=== PATIENT | male | born 1935 | race Caucasian/White ===

== ENCOUNTER 2020-05-04 02:29 | Emergency (ER) | payer MEDICARE ==
[2020-05-04] MEDS ORDERED: Sodium Chloride 0.9% 1,000 ML ONE (03:29)
[2020-05-04 03:32] LABS: ALT (SGPT) Less than 7 U/L (8-55); AST (SGOT) 8 U/L (5-34); Albumin 3.2 g/dL (3.4-4.8); Alkaline Phosphatase 81 U/L (40-110); Anion Gap 16 mmol/L (10-20); BUN (Urea Nitrogen) 19 mg/dL (8.4-25.7); Bilirubin, Total 0.3 mg/dL (0.2-1.2); Calc. Creatinine Clearance 0 mL/min (70-130); Calcium 9.2 mg/dL (7.8-10.44); Carbon Dioxide 33 mmol/L (23-31); Chloride 97 mmol/L (98-107); Estimated GFR-MDRD 43; Globulin 1.5 g/dL (2.4-3.5); Glucose 147 mg/dL (83-110); Lipase 15 U/L (8-78); Protein, Total 4.7 g/dL (5.8-8.1); Sodium 143 mmol/L (136-145)
[2020-05-04 03:34] LABS: Hemoglobin 7.6 g/dL (14.0-18.0); Red Blood Cell (RBC) Count 3.28 mill/uL (4.70-6.10); White Blood Cell (WBC) Count 2.4 thou/uL (4.8-10.8)
[2020-05-04 03:35] LABS: Mean Corpuscular HGB CONC 29.8 g/dL (32.0-36.0); Mean Corpuscular Hemoglobin 23.1 pg (27.0-31.0); Mean Corpuscular Volume 77.5 fL (78.0-98.0)
[2020-05-04 03:36] LABS: Mean Platelet Volume 7.4 fL (7.4-10.4)
[2020-05-04 03:45] LABS: Platelet Count 113 thou/uL (130-400)
[2020-05-04 06:09] LABS: #Lymphocytes 0.9 thou/uL (1.20-3.40); #Monocytes 0.2 thou/uL (0.11-0.59); #Neutrophils 1.2 thou/uL (1.40-6.50); %Basophils 1.3 % (0.0-1.0); %Lymphocytes 38.9 % (21.0-51.0); %Monocytes 6.3 % (0.0-10.0); %Neutrophils 51.5 % (42.0-75.0)
[2020-05-04 06:12] LABS: CKMB 0.7 ng/mL (0-6.6)
[2020-05-04 06:18] LABS: Potassium 2.9 mmol/L (3.5-5.1)
[2020-05-04 06:20] LABS: Hypochromia MARKED = >30 cells (100X) (0-5/hpf)
[2020-05-04 06:21] LABS: Platelet Morphology Comment Appears Decreased
--- NOTE | 2020-05-04 08:06 | CT ---
PRELIMINARY REPORT/[facility]/EMERGENCY AFTER HOURS PROCEDURE: Receipt of this report by the clinical staff was confirmed with Carol Welch rn by Neeru Lacy on May 04, 2020 04:42:00 CAKE PUNCHER. Addendum electronically signed by Neeru Lacy on May 04, 2020 4:43:46 AM CAKE PUNCHER EXAM: CTA Chest with Intravenous Contrast CTA Abdomen and Pelvis with Intravenous Contrast. CLINICAL HISTORY: CHEST AND ABD PAIN X2 HOURS TECHNIQUE: Axial CTA images of the chest, abdomen and pelvis with intravenous contrast. Three-dimensional MIP/vo lume rendered reformations were performed. CONTRAST: With; ISOVUE 370 100 ML COMPARISON: None provided. FINDINGS: Thoracic and abdominal aorta showing some modest atherosclerotic change without aneurysm or dissectio n. Moderate-sized pleural effusions are noted a little larger on the left with some minimal compressive changes at the lung bases. Cardiomegaly with a small pericardial effusion. Massive splenomegaly with what appears to be a spontaneous splenic rupture and massive hemoperitoneum . Spleen measures probably 30 cm in the craniocaudad dimension. IMPRESSION: Massive splenomegaly with spontaneous rupture with active hemorrhage with hemoperitoneum. No acute a ortic abnormalities. Bilateral pleural effusions, cardiomegaly, and pericardial effusion. ELECTRONICALLY SIGNED BY: Jameson Lugo MD May 04, 2020 4:39:49 AM CAKE PUNCHER This report is intended for review by the ordering physician only, in accordance of law. If you recei ve this report in error, please call [facility] at [phone]. FINAL REPORT EMERGENCY AFTER HOURS CTA OF THE CHEST AND ABDOMEN: FINDINGS/IMPRESSION: I agree with the findings and impression given in the preliminary report per [facility] physici an. 1. There is massive splenomegaly with splenic rupture and active bleeding. Large amount of hemoperit oneum is seen. 2. No evidence of aortic dissection or aneurysmal dilatation. 3. Bilateral pleural effusions with adjacent atelectasis. POS: [facility]
[2020-05-04] MEDS ORDERED: Iopamidol 370 76% 125 ML VIAL FS ONE (10:51)
== END 2020-05-04 05:30 | disposition short-term general hospital (02) ==
LOC: MADERS 02:29
DX: D73.5 Infarction of spleen (principal); I48.20 Chronic atrial fibrillation, unspecified; C91.10 Chronic lymphocytic leukemia of B-cell type not having achieved remission; R16.1 Splenomegaly, not elsewhere classified; E03.9 Hypothyroidism, unspecified; E78.5 Hyperlipidemia, unspecified; E78.00 Pure hypercholesterolemia, unspecified; F03.90 Unspecified dementia, unspecified severity, without behavioral disturbance, psychotic disturbance, mood disturbance, and anxiety; I10 Essential (primary) hypertension; Z79.899 Other long term (current) drug therapy; Z79.01 Long term (current) use of anticoagulants
CPT/HCPCS: 36430; 71275; 74174; 80053; 82553; 83605; 83690; 84484; 85025; 93005; J7050; Q9967

== ENCOUNTER 2020-05-18 16:08 | Inpatient (IN) | payer MEDICARE ==
[2020-05-18] MEDS: Cyanocobalamin (Vitamin B-12) 1,000 MCG TAB PO SCH (21:30)
[2020-05-18] MEDS: Carvedilol 6.25 MG TAB PO SCH (21:30)
[2020-05-18] MEDS: Apixaban 5 MG TAB PO SCH (21:30)
[2020-05-18] MEDS: hydrALAZINE 25 MG TAB PO SCH (21:31)
[2020-05-18] MEDS: Mupirocin 2% Ointment 22 GM Tube TOP SCH (21:31)
[2020-05-18] MEDS: Vit A,C & E/Lutein/Minerals Tablet PO SCH (21:31)
[2020-05-18] MEDS: Acetaminophen 500 MG TAB PO PRN (22:59)
[2020-05-19] MEDS: Levothyroxine Sodium 50 MCG TAB PO SCH (06:10)
[2020-05-19 09:00] LABS: Digoxin 0.63 ng/mL (0.8-2.0)
[2020-05-19] MEDS ORDERED: Digoxin 0.125 MG TAB PO SCH (09:00)
[2020-05-19] MEDS: hydrALAZINE 25 MG TAB PO SCH ×3 (09:01→22:02)
[2020-05-19] MEDS: Apixaban 5 MG TAB PO SCH ×2 (09:01→22:02)
[2020-05-19] MEDS: Furosemide 40 MG TAB PO SCH (09:01)
[2020-05-19] MEDS: Vit A,C & E/Lutein/Minerals Tablet PO SCH ×2 (09:01→22:02)
[2020-05-19] MEDS: Carvedilol 6.25 MG TAB PO SCH ×2 (09:01→22:02)
[2020-05-19] MEDS: Mupirocin 2% Ointment 22 GM Tube TOP SCH ×3 (09:02→22:19)
[2020-05-19] MEDS: Emollient 15 oz bottle 450 ML, Triamcinolone Acetonide 200 MG TOP SCH ×2 (09:02→22:18)
[2020-05-19 09:03] LABS: ALT (SGPT) 16 U/L (8-55); AST (SGOT) 16 U/L (5-34); Albumin 3.1 g/dL (3.4-4.8); Alkaline Phosphatase 235 U/L (40-110); Anion Gap 19 mmol/L (10-20); BUN (Urea Nitrogen) 18 mg/dL (8.4-25.7); Bilirubin, Total 0.5 mg/dL (0.2-1.2); Calc. Creatinine Clearance 79 mL/min (70-130); Calcium 8.3 mg/dL (7.8-10.44); Carbon Dioxide 26 mmol/L (23-31); Chloride 102 mmol/L (98-107); Globulin 1.5 g/dL (2.4-3.5); Glucose 77 mg/dL (83-110); Potassium 4.1 mmol/L (3.5-5.1); Protein, Total 4.6 g/dL (5.8-8.1); Sodium 143 mmol/L (136-145)
[2020-05-19 09:10] LABS: #Basophils 0.1 thou/uL (0.0-0.2); #Eosinphils 0.2 thou/uL (0.0-0.7); #Monocytes 0.9 thou/uL (0.11-0.59); #Neutrophils 10.1 thou/uL (1.40-6.50); %Basophils 1.1 % (0.0-1.0); %Eosinophils 1.7 % (0.0-10.0); %Lymphocytes 7.9 % (21.0-51.0); %Monocytes 7.3 % (0.0-10.0); %Neutrophils 82.1 % (42.0-75.0); Anisocytosis MODERATE=16-30 cells (100X) (0-5/hpf); Giant Platelets MODERATE; Hemoglobin 9.6 g/dL (14.0-18.0); Hypochromia SLIGHT = 6-15 cells (100X) (0-5/hpf); Large Platelets MODERATE; MDiff Complete? YES; Mean Corpuscular HGB CONC 30.8 g/dL (32.0-36.0); Mean Corpuscular Hemoglobin 25.6 pg (27.0-31.0); Mean Corpuscular Volume 83.2 fL (78.0-98.0); Mean Platelet Volume 12.8 fL (7.4-10.4); Platelet Count 478 thou/uL (130-400); Platelet Morphology Comment Appears Increased; Polychromasia MODERATE = 3-4 cells (100X) (0-2/hpf); RBC Distribution Width 19.4 % (11.5-14.5); Red Blood Cell (RBC) Count 3.76 mill/uL (4.70-6.10); White Blood Cell (WBC) Count 12.3 thou/uL (4.8-10.8)
[2020-05-19] MEDS: Cyanocobalamin (Vitamin B-12) 1,000 MCG TAB PO SCH (22:02)
[2020-05-20] MEDS: Levothyroxine Sodium 50 MCG TAB PO SCH (06:21)
--- NOTE | 2020-05-20 06:54 | HP ---
ATTENDING: Dr. Howell. PCP: Dr. Eloy Nichols. DOWNSTREAM BIOMANUFACTURING TECHNICIAN: Dr. Sy. GENERAL SURGEON: . REASON FOR ADMISSION: Skilled rehab in [facility] secondary to severe debility after recent hospitalization. HISTORY OF PRESENT ILLNESS: Mr. Roberts is an 84-year-old male with significant history of CLL, atrial fibrillation, CHF, and worsening dementia. The patient had a history of CLL that has been treated by an oncologist in the [place] since 2014. Per report, when he was first diagnosed with this, he was not noted to have a massive splenomegaly. After the initial round of treatment, he was suspected to be in remission for his disease and was initially told that the spleen had shrunk in size. He was found to have recurrence of the disease about six months ago per report. He began treatment at that time with Imbruvica. In February, was found to be in atrial fibrillation and had progressive cardiac problems. At that time, his Imbruvica was discontinued and the patient was treated for atrial fibrillation. The patient required an inpatient management of atrial fibrillation at that time and had a cardioversion done, but was unsuccessful within 24 hours and subsequently been rate controlled thereafter with anticoagulation. About a week ago, the patient fell at home resulting in bruising several areas. At that time, he did not require any medical evaluation, but in the middle of the night, he reported chest pain and had some shortness of breath, thus he was sent to [facility] for initial evaluation. At the ER, CT scan at that time revealed cardiomegaly, pleural effusion, massive splenomegaly that appears to have what appeared to be splenic rupture and hemoperitoneum/ascites. His hemoglobin at that time was down to 7.6 with last known hemoglobin of 2 months prior to be at 9.8. He also had leukopenia with white cell count of 2.4, platelets slightly low at 113. Potassium level of 2.9 and creatinine of 1.56. The patient was subsequently transferred to [facility] in [place]. The patient underwent splenectomy on 05/04/2020. Per report, there was difficulty weaning off the patient from the ventilator postoperatively, but eventually has been weaned off. He was continued on some IV antibiotics and cultures were collected. His cultures were negative. During his course, manufacturing engineering technician had seen the patient due to worsening renal function and they helped optimize the fluid. His renal functions improved and apparently back to baseline prior to discharge. Per , the patient was placed on enteral feeding, but that was eventually discontinued and prior to discharge, the patient was started on pureed diet, which he tolerated well. reports that the patient has not really had eaten much as of yet and remains to have inadequate oral intake, but trying. The patient continues to have significant need for aggressive physical therapy in addition to occupational therapy, so he was sent to [facility] after the patient was stabilized clinically. On admission, the patient was generally weak and frail looking. He is awake, alert, and oriented to basic information. He answers simple questions with appropriateness. was present at the time of examination. contributes some to his history. reports that the patient has a history of worsening dementia. During his recent stay in the hospital, reported that the patient had some sundowning behaviors requiring her to be with the patient at night. is willing to stay with the patient in [facility] every night. The patient reports that he feels very weak ans could hardly move in bed without significant help,has not had started walking yet, but is willing to undergo therapy in [facility]. PAST MEDICAL HISTORY: 1. CLL. 2. Atrial fibrillation. 3. Congestive heart failure. 4. 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 5. Hypertension. 6. Anemia, severe. 7. 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 8. Hypothyroidism. PAST SURGICAL HISTORY: 1. Left knee replacement. 2. He also had pilonidal cyst surgery in the remote past. 3. 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 ALLERGIES: TO PENICILLIN AND BACTRIM. SOCIAL HISTORY: The patient is . He and his live in [place]. He has not smoked in over 50 years and drinks alcohol very rarely. MEDICATIONS: 1. Eliquis. 2. Lisinopril. 3. Levothyroxine. 4. Lasix. 5. Diltiazem. 6. Carvedilol. REVIEW OF SYSTEMS: GENERAL: Denies fever or chills. Reports fatigue, general weakness, and loss of appetite. HEENT: Denies acute visual changes, hearing changes, cold symptoms. RESPIRATORY: No cough. No pain with breathing. No shortness of breath. CARDIOVASCULAR: No chest pain. No paroxysmal nocturnal dyspnea or palpitations. GI: No nausea, vomiting, abdominal pain at this time, rectal bleeding, diarrhea. or melena. GENITOURINARY: Denies gross hematuria or dysuria. Positive for Carolina catheter. MUSCULOSKELETAL: Denies joint pains or myalgia. NEURO: Denies focal paralysis, paresthesia, headaches, seizures. PSYCH: Reports poor memory and then sundowning behaviors. PHYSICAL EXAMINATION: VITAL SIGNS: Blood pressure 158/86, temperature 98.6, pulse 76, respirations 18, O2 saturation 96% on room air. Weight at 137 pounds, height 5 feet 9 inches. GENERAL: The patient is awake, alert, oriented to person and place. Comfortable on exam, frail, cachectic, generally weak-looking elderly male, in no signs of acute respiratory distress. HEENT: Normocephalic, atraumatic. PERRL. Intact EOM. Anicteric sclerae. Oral mucosa is moist. The lips are dry and covered with dark dry scab. NECK: Supple. No LAD. No JVD. No bruit. CHEST: Normal excursion. Nonlabored breathing. LUNGS: Clear to auscultation bilaterally. No rales. No crackles. No rhonchi. No wheezing. CARDIAC: Rate controlled. Normal S1 and S2. ABDOMEN: Vertical postoperative site on mid abdomen is dry, edges are well coaptated. No erythema. No drainage. No signs of infection, with normoactive bowel sounds. Flat, nontender. No rebound or guarding. Negative CVA tenderness bilaterally. EXTREMITIES: Thin,atrophied limbs, No edema. No cyanosis. SKIN: Very dry hyperpigmented scaling of skin from the neck down to the arms and legs. with unstageable sacral decubitus ulcer, covered with yellowish slough. See pictures for details. NEUROLOGIC: Nonfocal. Moves all extremities symmetrically. Gait, bed-bound. PSYCH: Normal affect and socially interactive, calm, and cooperative. LABS: The most recent lab on 05/16/2020: WBC 12.5, hemoglobin 8.8, hematocrit 29.2, platelet 382. Sodium 139, potassium 4.2, BUN 16, creatinine 0.59, estimated GFR greater than 90, calcium 8.4, phosphorus 2.7, albumin 3.0. Previous albumin 1.5 on 05/13/2020. Digoxin level 05/07/2020, 0.98. COVID testing on 05/04/2020 was negative. ASSESSMENT AND PLAN: This is an 84-year-old male with significant history of CLL, atrial fibrillation, CHF, who recently had a spontaneous rupture of the spleen and deemed like related to his massive splenomegaly, uncertain if it is acute or chronic, uncertain if traumatic or spontaneous rupture. The patient underwent splenectomy on 05/04/2020 for splenic rupture with large hemoperitoneum and acute blood loss anemia, now with severe debility, loss of appetite, poor oral intake with swallowing issues. Malnutrition is associated with hypoalbuminemia; multiple skin lesions, unstageable sacral decubitus ulcer. He is completely bedbound, and requiring indwelling urinary catheter for preventative measures to avoid worsening of sacral wound. The patient is admitted at [facility] for purposes of skilled rehab. The patient will be referred to PT, OT, and speech therapy for evaluation and management. He will continue all current medications as per transfer list. The will continue pureed diet as directed. We will order baseline lab works at this time and may probably need serial blood works along the course. We will retain his Carolina catheter until the patient becomes mobile. Routine wound care. Aspiration precautions. Turn from side to side every 2 hours. We will continue monitoring the patient for signs of infection. We will schedule followup appointments with the surgeon and the patient's Hematology as part of the discharge plan. Further recommendations depending on the hospital course. CODE STATUS: DNAR as confirmed by . ESTIMATED LENGTH OF STAY: 2 to 3 weeks. DISPOSITION: Home with once appropriate. Job ID: [id number] [facility]
[2020-05-20] MEDS ORDERED: Mupirocin 2% Ointment 22 GM Tube ONE ×2 (08:32→09:17)
[2020-05-20] MEDS: hydrALAZINE 25 MG TAB PO SCH ×3 (09:02→21:11)
[2020-05-20] MEDS: Vit A,C & E/Lutein/Minerals Tablet PO SCH ×2 (09:02→21:10)
[2020-05-20] MEDS: Carvedilol 6.25 MG TAB PO SCH ×2 (09:02→21:10)
[2020-05-20] MEDS: Ibuprofen 600 MG TAB PO PRN (09:03)
[2020-05-20] MEDS: Digoxin 0.25 MG TAB PO SCH (09:03)
[2020-05-20] MEDS: Furosemide 40 MG TAB PO SCH (09:03)
[2020-05-20] MEDS: Apixaban 5 MG TAB PO SCH ×2 (09:03→21:10)
[2020-05-20] MEDS: Nystatin 500,000 UNITS/5 ML UDCUP SSW SCH ×4 (09:04→21:10)
[2020-05-20] MEDS: Emollient 15 oz bottle 450 ML, Triamcinolone Acetonide 200 MG TOP SCH ×2 (09:04→21:12)
[2020-05-20] MEDS: Mupirocin 2% Ointment 22 GM Tube TOP SCH ×3 (09:12→21:09)
[2020-05-20] MEDS: Lidocaine Viscous Sol 2% 15 ml UD Cup SSP SCH (09:16)
[2020-05-20 18:20] LABS: ALT (SGPT) 12 U/L (8-55); AST (SGOT) 14 U/L (5-34); Albumin 3.3 g/dL (3.4-4.8); Alkaline Phosphatase 243 U/L (40-110); Anion Gap 16 mmol/L (10-20); BUN (Urea Nitrogen) 17 mg/dL (8.4-25.7); Bilirubin, Total 0.4 mg/dL (0.2-1.2); Calc. Creatinine Clearance 69 mL/min (70-130); Calcium 8.9 mg/dL (7.8-10.44); Carbon Dioxide 32 mmol/L (23-31); Chloride 101 mmol/L (98-107); Globulin 1.9 g/dL (2.4-3.5); Glucose 112 mg/dL (83-110); Potassium 3.6 mmol/L (3.5-5.1); Protein, Total 5.2 g/dL (5.8-8.1); Sodium 145 mmol/L (136-145)
[2020-05-20 18:34] LABS: Hemoglobin 10.7 g/dL (14.0-18.0); Mean Corpuscular HGB CONC 31.4 g/dL (32.0-36.0); Mean Corpuscular Hemoglobin 25.9 pg (27.0-31.0); Mean Corpuscular Volume 82.5 fL (78.0-98.0); Mean Platelet Volume 12.9 fL (7.4-10.4); Platelet Count 552 thou/uL (130-400); RBC Distribution Width 18.9 % (11.5-14.5); Red Blood Cell (RBC) Count 4.14 mill/uL (4.70-6.10); White Blood Cell (WBC) Count 17.3 thou/uL (4.8-10.8)
[2020-05-20 18:35] LABS: Anisocytosis MODERATE=16-30 cells (100X) (0-5/hpf); Hypochromia SLIGHT = 6-15 cells (100X) (0-5/hpf); MDiff Complete? YES; Polychromasia SLIGHT = 2-3 cells (100X) (0-2/hpf)
[2020-05-20 18:41] LABS: Lymphocytes 4 % (21-51); Neutrophil 91 % (42-75)
[2020-05-20 18:42] LABS: Monocytes 5 % (0-10)
[2020-05-20] MEDS: Cyanocobalamin (Vitamin B-12) 1,000 MCG TAB PO SCH (21:10)
[2020-05-20] MEDS: Acetaminophen 500 MG TAB PO PRN (21:35)
[2020-05-21] MEDS: Levothyroxine Sodium 50 MCG TAB PO SCH (05:47)
[2020-05-21] MEDS: Lidocaine Viscous Sol 2% 15 ml UD Cup SSP SCH (09:52)
[2020-05-21] MEDS: Nystatin 500,000 UNITS/5 ML UDCUP SSW SCH ×4 (09:53→20:21)
[2020-05-21] MEDS: Furosemide 40 MG TAB PO SCH (09:55)
[2020-05-21] MEDS: Ibuprofen 600 MG TAB PO PRN (09:55)
[2020-05-21] MEDS: Digoxin 0.25 MG TAB PO SCH (09:55)
[2020-05-21] MEDS: Apixaban 5 MG TAB PO SCH (09:55)
[2020-05-21] MEDS: Vit A,C & E/Lutein/Minerals Tablet PO SCH ×2 (09:56→20:21)
[2020-05-21] MEDS: hydrALAZINE 25 MG TAB PO SCH ×3 (09:56→20:21)
[2020-05-21] MEDS: Mupirocin 2% Ointment 22 GM Tube TOP SCH ×3 (09:57→20:29)
[2020-05-21] MEDS: Carvedilol 6.25 MG TAB PO SCH ×2 (09:57→20:17)
[2020-05-21] MEDS: Emollient 15 oz bottle 450 ML, Triamcinolone Acetonide 200 MG TOP SCH ×2 (09:57→21:00)
[2020-05-21] MEDS: Acetaminophen 500 MG TAB PO SCH ×2 (15:06→20:12)
[2020-05-21] MEDS: Lisinopril 10 MG TAB PO SCH ×5 (15:09→15:21)
[2020-05-21] MEDS: Silver Sulfadiazine 50 GM TUBE TOP SCH ×3 (15:10→15:20)
[2020-05-21] MEDS: LISINOPRIL 2.5 MG PO SCH ×3 (15:10→15:20)
[2020-05-21] MEDS: Mirtazapine 15 MG TAB PO SCH (20:14)
[2020-05-21] MEDS: Cyanocobalamin (Vitamin B-12) 1,000 MCG TAB PO SCH (20:15)
[2020-05-21] MEDS: Apixaban 2.5 MG TAB PO SCH (20:17)
[2020-05-22] MEDS: Levothyroxine Sodium 50 MCG TAB PO SCH (05:30)
[2020-05-22] MEDS: Carvedilol 6.25 MG TAB PO SCH ×2 (09:06→21:22)
[2020-05-22] MEDS: hydrALAZINE 25 MG TAB PO SCH ×3 (09:06→21:22)
[2020-05-22] MEDS: Lidocaine Viscous Sol 2% 15 ml UD Cup SSP SCH (09:06)
[2020-05-22] MEDS: Nystatin 500,000 UNITS/5 ML UDCUP SSW SCH ×4 (09:06→21:24)
[2020-05-22] MEDS: Acetaminophen 500 MG TAB PO SCH ×3 (09:07→21:23)
[2020-05-22] MEDS: Lisinopril 5 MG TAB PO SCH (09:07)
[2020-05-22] MEDS: Apixaban 2.5 MG TAB PO SCH ×2 (09:07→21:22)
[2020-05-22] MEDS: Digoxin 0.25 MG TAB PO SCH (09:07)
[2020-05-22] MEDS: Furosemide 40 MG TAB PO SCH (09:07)
[2020-05-22] MEDS: Mupirocin 2% Ointment 22 GM Tube TOP SCH ×3 (09:08→21:24)
[2020-05-22] MEDS: Vit A,C & E/Lutein/Minerals Tablet PO SCH ×2 (09:08→21:21)
[2020-05-22] MEDS: Emollient 15 oz bottle 450 ML, Triamcinolone Acetonide 200 MG TOP SCH ×2 (09:09→21:24)
[2020-05-22] MEDS: Mirtazapine 15 MG TAB PO SCH (21:20)
[2020-05-22] MEDS: Cyanocobalamin (Vitamin B-12) 1,000 MCG TAB PO SCH (21:21)
[2020-05-23] MEDS: Levothyroxine Sodium 50 MCG TAB PO SCH (05:45)
[2020-05-23] MEDS: Lidocaine Viscous Sol 2% 15 ml UD Cup SSP SCH (09:45)
[2020-05-23] MEDS: Nystatin 500,000 UNITS/5 ML UDCUP SSW SCH ×4 (09:46→22:59)
[2020-05-23] MEDS: hydrALAZINE 25 MG TAB PO SCH ×4 (09:47→23:49)
[2020-05-23] MEDS: Furosemide 40 MG TAB PO SCH (09:47)
[2020-05-23] MEDS: Digoxin 0.25 MG TAB PO SCH (09:47)
[2020-05-23] MEDS: Acetaminophen 500 MG TAB PO SCH ×3 (09:48→21:52)
[2020-05-23] MEDS: Lisinopril 5 MG TAB PO SCH (09:49)
[2020-05-23] MEDS: Carvedilol 6.25 MG TAB PO SCH ×2 (09:49→21:53)
[2020-05-23] MEDS: Apixaban 2.5 MG TAB PO SCH ×2 (09:50→21:52)
[2020-05-23] MEDS: Emollient 15 oz bottle 450 ML, Triamcinolone Acetonide 200 MG TOP SCH ×2 (09:51→21:57)
[2020-05-23] MEDS: Mupirocin 2% Ointment 22 GM Tube TOP SCH ×3 (09:51→22:58)
[2020-05-23] MEDS: Vit A,C & E/Lutein/Minerals Tablet PO SCH ×2 (09:53→22:26)
[2020-05-23] MEDS: Cyanocobalamin (Vitamin B-12) 1,000 MCG TAB PO SCH (21:52)
[2020-05-23] MEDS: Mirtazapine 15 MG TAB PO SCH (21:54)
[2020-05-23] MEDS ORDERED: Clindamycin 150 MG CAP ONE (21:59)
[2020-05-23] MEDS ORDERED: Clindamycin 150 MG CAP PO SCH (22:30)
[2020-05-24] MEDS: Levothyroxine Sodium 50 MCG TAB PO SCH (05:44)
[2020-05-24] MEDS: Clindamycin 150 MG CAP PO SCH ×3 (05:44→21:30)
[2020-05-24] MEDS: Vit A,C & E/Lutein/Minerals Tablet PO SCH ×2 (08:49→20:25)
[2020-05-24] MEDS: Lisinopril 5 MG TAB PO SCH (08:49)
[2020-05-24] MEDS: Acetaminophen 500 MG TAB PO SCH ×3 (08:50→20:24)
[2020-05-24] MEDS: Digoxin 0.25 MG TAB PO SCH (08:50)
[2020-05-24] MEDS: Furosemide 40 MG TAB PO SCH (08:50)
[2020-05-24] MEDS: Carvedilol 6.25 MG TAB PO SCH ×2 (08:51→20:27)
[2020-05-24] MEDS: Apixaban 2.5 MG TAB PO SCH ×2 (08:51→20:27)
[2020-05-24] MEDS: hydrALAZINE 25 MG TAB PO SCH ×3 (08:51→20:34)
[2020-05-24] MEDS: Lidocaine Viscous Sol 2% 15 ml UD Cup SSP SCH (08:52)
[2020-05-24] MEDS: Nystatin 500,000 UNITS/5 ML UDCUP SSW SCH ×4 (08:53→20:27)
[2020-05-24] MEDS: Mupirocin 2% Ointment 22 GM Tube TOP SCH ×3 (08:53→20:28)
[2020-05-24] MEDS: Emollient 15 oz bottle 450 ML, Triamcinolone Acetonide 200 MG TOP SCH ×2 (08:53→20:28)
[2020-05-24] MEDS: Saccharomyces boulardii 250 MG CAP PO SCH (08:53)
[2020-05-24] MEDS: Mirtazapine 15 MG TAB PO SCH (20:26)
[2020-05-24] MEDS: Cyanocobalamin (Vitamin B-12) 1,000 MCG TAB PO SCH (20:27)
[2020-05-25] MEDS: Levothyroxine Sodium 50 MCG TAB PO SCH (05:27)
[2020-05-25] MEDS: Clindamycin 150 MG CAP PO SCH ×3 (05:27→22:49)
[2020-05-25 06:54] LABS: Hemoglobin 9.2 g/dL (14.0-18.0); Platelet Count 557 thou/uL (130-400)
[2020-05-25] MEDS: Acetaminophen 500 MG TAB PO SCH ×3 (08:47→19:59)
[2020-05-25] MEDS: Saccharomyces boulardii 250 MG CAP PO SCH (08:47)
[2020-05-25] MEDS: Carvedilol 6.25 MG TAB PO SCH ×2 (08:47→20:02)
[2020-05-25] MEDS: Lisinopril 5 MG TAB PO SCH (08:47)
[2020-05-25] MEDS: Vit A,C & E/Lutein/Minerals Tablet PO SCH ×2 (08:47→20:00)
[2020-05-25] MEDS: Apixaban 2.5 MG TAB PO SCH ×2 (08:47→19:59)
[2020-05-25] MEDS: hydrALAZINE 25 MG TAB PO SCH ×3 (08:48→20:08)
[2020-05-25] MEDS: Furosemide 40 MG TAB PO SCH (08:48)
[2020-05-25] MEDS: Lidocaine Viscous Sol 2% 15 ml UD Cup SSP SCH (08:48)
[2020-05-25] MEDS: Digoxin 0.25 MG TAB PO SCH (08:48)
[2020-05-25] MEDS: Nystatin 500,000 UNITS/5 ML UDCUP SSW SCH ×4 (08:48→20:00)
[2020-05-25] MEDS: Mupirocin 2% Ointment 22 GM Tube TOP SCH ×3 (08:49→20:00)
[2020-05-25] MEDS: Emollient 15 oz bottle 450 ML, Triamcinolone Acetonide 200 MG TOP SCH ×2 (08:49→20:09)
[2020-05-25 12:51] LABS: White Blood Cell (WBC) Count 12.6 thou/uL (4.8-10.8)
[2020-05-25] MEDS: Cyanocobalamin (Vitamin B-12) 1,000 MCG TAB PO SCH (19:59)
[2020-05-25] MEDS: Mirtazapine 15 MG TAB PO SCH (19:59)
[2020-05-25] MEDS ORDERED: hydrALAZINE 25 MG TAB PO SCH (20:15)
[2020-05-26] MEDS: Levothyroxine Sodium 50 MCG TAB PO SCH (05:32)
[2020-05-26] MEDS: Clindamycin 150 MG CAP PO SCH (05:32)
[2020-05-26] MEDS: Acetaminophen 500 MG TAB PO SCH ×3 (08:07→20:09)
[2020-05-26] MEDS: Carvedilol 6.25 MG TAB PO SCH ×2 (08:08→20:11)
[2020-05-26] MEDS: Apixaban 2.5 MG TAB PO SCH ×2 (08:08→20:10)
[2020-05-26] MEDS: Digoxin 0.25 MG TAB PO SCH (08:09)
[2020-05-26] MEDS: Saccharomyces boulardii 250 MG CAP PO SCH (08:10)
[2020-05-26] MEDS: Furosemide 40 MG TAB PO SCH (08:10)
[2020-05-26] MEDS: Lisinopril 5 MG TAB PO SCH (08:10)
[2020-05-26] MEDS: Vit A,C & E/Lutein/Minerals Tablet PO SCH ×2 (08:10→20:07)
[2020-05-26] MEDS: hydrALAZINE 25 MG TAB PO SCH ×3 (08:10→20:08)
[2020-05-26] MEDS: Nystatin 500,000 UNITS/5 ML UDCUP SSW SCH ×4 (08:11→20:06)
[2020-05-26] MEDS: Lidocaine Viscous Sol 2% 15 ml UD Cup SSP SCH (08:13)
[2020-05-26] MEDS: Mupirocin 2% Ointment 22 GM Tube TOP SCH ×3 (08:14→20:10)
[2020-05-26] MEDS: Emollient 15 oz bottle 450 ML, Triamcinolone Acetonide 200 MG TOP SCH ×2 (08:15→20:06)
[2020-05-26] MEDS ORDERED: Linezolid 600 MG TAB PO SCH ×2 (10:45→21:00)
[2020-05-26] MEDS: Linezolid 600 MG TAB PO SCH (20:08)
[2020-05-26] MEDS: Cyanocobalamin (Vitamin B-12) 1,000 MCG TAB PO SCH (20:09)
[2020-05-26] MEDS: Mirtazapine 15 MG TAB PO SCH (20:10)
[2020-05-27] MEDS: Levothyroxine Sodium 50 MCG TAB PO SCH (05:13)
[2020-05-27] MEDS: Acetaminophen 500 MG TAB PO SCH ×3 (08:27→19:59)
[2020-05-27] MEDS: Lisinopril 5 MG TAB PO SCH (08:28)
[2020-05-27] MEDS: Carvedilol 6.25 MG TAB PO SCH ×2 (08:28→20:01)
[2020-05-27] MEDS: Furosemide 40 MG TAB PO SCH (08:28)
[2020-05-27] MEDS: Apixaban 2.5 MG TAB PO SCH ×2 (08:28→20:02)
[2020-05-27] MEDS: Digoxin 0.25 MG TAB PO SCH (08:28)
[2020-05-27] MEDS: Saccharomyces boulardii 250 MG CAP PO SCH (08:29)
[2020-05-27] MEDS: hydrALAZINE 25 MG TAB PO SCH ×3 (08:29→20:01)
[2020-05-27] MEDS: Linezolid 600 MG TAB PO SCH ×2 (08:29→20:00)
[2020-05-27] MEDS: Vit A,C & E/Lutein/Minerals Tablet PO SCH ×2 (08:30→19:59)
[2020-05-27] MEDS: Mupirocin 2% Ointment 22 GM Tube TOP SCH ×3 (08:30→20:03)
[2020-05-27] MEDS: Lidocaine Viscous Sol 2% 15 ml UD Cup SSP SCH (08:30)
[2020-05-27] MEDS: Nystatin 500,000 UNITS/5 ML UDCUP SSW SCH ×4 (08:30→20:00)
[2020-05-27] MEDS: Emollient 15 oz bottle 450 ML, Triamcinolone Acetonide 200 MG TOP SCH ×2 (08:31→20:02)
[2020-05-27] MEDS ORDERED: Proctozone-HC 30 GM TUBE PR PRN (17:52)
[2020-05-27] MEDS: Proctozone-HC 30 GM TUBE PR SCH (20:00)
[2020-05-27] MEDS: Mirtazapine 15 MG TAB PO SCH (20:00)
[2020-05-27] MEDS: Cyanocobalamin (Vitamin B-12) 1,000 MCG TAB PO SCH (20:01)
[2020-05-28] MEDS: Levothyroxine Sodium 50 MCG TAB PO SCH (05:21)
[2020-05-28 05:53] LABS: Calc. Creatinine Clearance 76 mL/min (70-130)
[2020-05-28 05:57] LABS: Digoxin 1.25 ng/mL (0.8-2.0)
[2020-05-28 06:14] LABS: Hemoglobin 10.5 g/dL (14.0-18.0); Platelet Count 678 thou/uL (130-400)
--- NOTE | 2020-05-28 07:36 | RAD ---
XR Knee Lt 2 View History: Knee pain after fall Comparison: None. Findings: Intact left total knee arthroplasty. No significant joint effusion. No acute fracture. Mild vascular calcifications. Impression: No osseous abnormality. Intact left knee arthroplasty.
[2020-05-28] MEDS: Nystatin 500,000 UNITS/5 ML UDCUP SSW SCH ×4 (08:28→20:43)
[2020-05-28] MEDS: Lisinopril 5 MG TAB PO SCH (08:29)
[2020-05-28] MEDS: Carvedilol 6.25 MG TAB PO SCH ×2 (08:29→20:40)
[2020-05-28] MEDS: Acetaminophen 500 MG TAB PO SCH ×3 (08:29→20:38)
[2020-05-28] MEDS: Apixaban 2.5 MG TAB PO SCH ×2 (08:30→20:39)
[2020-05-28] MEDS: hydrALAZINE 25 MG TAB PO SCH ×3 (08:30→20:42)
[2020-05-28] MEDS: Linezolid 600 MG TAB PO SCH ×2 (08:30→20:40)
[2020-05-28] MEDS: Digoxin 0.25 MG TAB PO SCH (08:30)
[2020-05-28] MEDS: Furosemide 40 MG TAB PO SCH (08:30)
[2020-05-28] MEDS: Mupirocin 2% Ointment 22 GM Tube TOP SCH ×3 (08:31→21:55)
[2020-05-28] MEDS: Proctozone-HC 30 GM TUBE PR SCH ×2 (08:31→20:43)
[2020-05-28] MEDS: Saccharomyces boulardii 250 MG CAP PO SCH (08:32)
[2020-05-28] MEDS: Lidocaine Viscous Sol 2% 15 ml UD Cup SSP SCH (08:32)
[2020-05-28] MEDS: Emollient 15 oz bottle 450 ML, Triamcinolone Acetonide 200 MG TOP SCH ×2 (08:32→20:44)
[2020-05-28] MEDS: Vit A,C & E/Lutein/Minerals Tablet PO SCH ×2 (08:32→20:40)
[2020-05-28] MEDS: Cyanocobalamin (Vitamin B-12) 1,000 MCG TAB PO SCH (20:40)
[2020-05-28] MEDS: Mirtazapine 15 MG TAB PO SCH (20:41)
[2020-05-29] MEDS: Levothyroxine Sodium 50 MCG TAB PO SCH (05:49)
[2020-05-29] MEDS: Lidocaine Viscous Sol 2% 15 ml UD Cup SSP SCH (08:29)
[2020-05-29] MEDS: Nystatin 500,000 UNITS/5 ML UDCUP SSW SCH ×4 (08:29→20:12)
[2020-05-29] MEDS: Acetaminophen 500 MG TAB PO SCH ×3 (08:29→20:13)
[2020-05-29] MEDS: Vit A,C & E/Lutein/Minerals Tablet PO SCH ×2 (08:30→20:12)
[2020-05-29] MEDS: Lisinopril 5 MG TAB PO SCH (08:30)
[2020-05-29] MEDS: Digoxin 0.25 MG TAB PO SCH (08:30)
[2020-05-29] MEDS: Apixaban 2.5 MG TAB PO SCH ×2 (08:30→20:14)
[2020-05-29] MEDS: hydrALAZINE 25 MG TAB PO SCH ×3 (08:30→20:14)
[2020-05-29] MEDS: Saccharomyces boulardii 250 MG CAP PO SCH (08:30)
[2020-05-29] MEDS: Furosemide 40 MG TAB PO SCH (08:31)
[2020-05-29] MEDS: Carvedilol 6.25 MG TAB PO SCH ×2 (08:31→20:14)
[2020-05-29] MEDS: Linezolid 600 MG TAB PO SCH ×2 (08:31→20:12)
[2020-05-29] MEDS: Proctozone-HC 30 GM TUBE PR SCH ×2 (08:31→20:15)
[2020-05-29] MEDS: Mupirocin 2% Ointment 22 GM Tube TOP SCH ×3 (08:31→20:12)
[2020-05-29] MEDS: Emollient 15 oz bottle 450 ML, Triamcinolone Acetonide 200 MG TOP SCH ×2 (10:53→20:15)
[2020-05-29] MEDS: Mirtazapine 15 MG TAB PO SCH (20:14)
[2020-05-29] MEDS: Cyanocobalamin (Vitamin B-12) 1,000 MCG TAB PO SCH (20:14)
[2020-05-29] MEDS: Melatonin 3 MG TAB PO PRN (21:07)
[2020-05-30] MEDS: Levothyroxine Sodium 50 MCG TAB PO SCH (05:18)
[2020-05-30] MEDS: Lidocaine Viscous Sol 2% 15 ml UD Cup SSP SCH (09:28)
[2020-05-30] MEDS: Saccharomyces boulardii 250 MG CAP PO SCH (09:30)
[2020-05-30] MEDS: Acetaminophen 500 MG TAB PO SCH ×3 (09:30→20:14)
[2020-05-30] MEDS: Carvedilol 6.25 MG TAB PO SCH ×2 (09:30→20:15)
[2020-05-30] MEDS: Nystatin 500,000 UNITS/5 ML UDCUP SSW SCH ×4 (09:30→20:13)
[2020-05-30] MEDS: Apixaban 2.5 MG TAB PO SCH ×2 (09:30→20:17)
[2020-05-30] MEDS: Vit A,C & E/Lutein/Minerals Tablet PO SCH ×2 (09:30→20:13)
[2020-05-30] MEDS: Digoxin 0.25 MG TAB PO SCH (09:31)
[2020-05-30] MEDS: Lisinopril 5 MG TAB PO SCH (09:32)
[2020-05-30] MEDS: hydrALAZINE 25 MG TAB PO SCH ×3 (09:33→20:15)
[2020-05-30] MEDS: Linezolid 600 MG TAB PO SCH ×2 (09:33→20:15)
[2020-05-30] MEDS: Mupirocin 2% Ointment 22 GM Tube TOP SCH ×3 (09:34→20:14)
[2020-05-30] MEDS: Emollient 15 oz bottle 450 ML, Triamcinolone Acetonide 200 MG TOP SCH ×2 (09:35→20:14)
[2020-05-30] MEDS: Proctozone-HC 30 GM TUBE PR SCH ×2 (09:36→20:16)
[2020-05-30] MEDS: Melatonin 3 MG TAB PO PRN (20:16)
[2020-05-30] MEDS: Mirtazapine 15 MG TAB PO SCH (20:16)
[2020-05-30] MEDS: Cyanocobalamin (Vitamin B-12) 1,000 MCG TAB PO SCH (20:16)
[2020-05-30] MEDS: Aspirin 81 mg Enteric Coated Tablet PO SCH (20:16)
[2020-05-31] MEDS: Levothyroxine Sodium 50 MCG TAB PO SCH (05:10)
[2020-05-31] MEDS: Acetaminophen 500 MG TAB PO SCH ×3 (09:37→20:44)
[2020-05-31] MEDS: Apixaban 2.5 MG TAB PO SCH ×2 (09:38→20:40)
[2020-05-31] MEDS: Linezolid 600 MG TAB PO SCH ×2 (09:38→20:45)
[2020-05-31] MEDS: Nystatin 500,000 UNITS/5 ML UDCUP SSW SCH (09:39)
[2020-05-31] MEDS: Lidocaine Viscous Sol 2% 15 ml UD Cup SSP SCH (09:39)
[2020-05-31] MEDS: hydrALAZINE 25 MG TAB PO SCH ×3 (09:39→20:44)
[2020-05-31] MEDS: Saccharomyces boulardii 250 MG CAP PO SCH (09:39)
[2020-05-31] MEDS: Carvedilol 6.25 MG TAB PO SCH ×2 (09:39→20:43)
[2020-05-31] MEDS: Digoxin 0.25 MG TAB PO SCH (09:39)
[2020-05-31] MEDS: Vit A,C & E/Lutein/Minerals Tablet PO SCH ×2 (09:39→20:39)
[2020-05-31] MEDS: Lisinopril 5 MG TAB PO SCH (09:39)
[2020-05-31] MEDS: Sodium Chloride 0.9% 1,000 ML IV SCH ×2 (09:41→20:08)
[2020-05-31] MEDS: Proctozone-HC 30 GM TUBE PR SCH ×2 (09:42→21:00)
[2020-05-31] MEDS: Emollient 15 oz bottle 450 ML, Triamcinolone Acetonide 200 MG TOP SCH ×2 (09:43→20:47)
[2020-05-31] MEDS: Mupirocin 2% Ointment 22 GM Tube TOP SCH (09:43)
[2020-05-31] MEDS ORDERED: Amino Acids 4.25 %/Dextrose 5% 1,000 ML IV SCH (12:30)
[2020-05-31] MEDS: Mirtazapine 15 MG TAB PO SCH (20:40)
[2020-05-31] MEDS: Aspirin 81 mg Enteric Coated Tablet PO SCH (20:42)
[2020-05-31] MEDS: Cyanocobalamin (Vitamin B-12) 1,000 MCG TAB PO SCH (20:45)
[2020-05-31] MEDS: Melatonin 3 MG TAB PO PRN (20:51)
[2020-06-01] MEDS: Sodium Chloride 0.9% 1,000 ML IV SCH ×2 (04:34→14:53)
[2020-06-01] MEDS: Levothyroxine Sodium 50 MCG TAB PO SCH ×2 (05:20→05:23)
[2020-06-01] MEDS: Vit A,C & E/Lutein/Minerals Tablet PO SCH ×2 (08:25→20:30)
[2020-06-01] MEDS: Saccharomyces boulardii 250 MG CAP PO SCH (08:25)
[2020-06-01] MEDS: Acetaminophen 500 MG TAB PO SCH ×3 (08:26→20:24)
[2020-06-01] MEDS: Lisinopril 5 MG TAB PO SCH (08:27)
[2020-06-01] MEDS: Digoxin 0.25 MG TAB PO SCH (08:27)
[2020-06-01] MEDS: Linezolid 600 MG TAB PO SCH ×2 (08:27→20:28)
[2020-06-01] MEDS: hydrALAZINE 25 MG TAB PO SCH ×3 (08:28→20:27)
[2020-06-01] MEDS: Carvedilol 6.25 MG TAB PO SCH ×2 (08:28→20:27)
[2020-06-01] MEDS: Apixaban 2.5 MG TAB PO SCH ×2 (08:28→20:26)
[2020-06-01] MEDS: Emollient 15 oz bottle 450 ML, Triamcinolone Acetonide 200 MG TOP SCH ×2 (08:29→20:32)
[2020-06-01] MEDS: Amino Acids 4.25 %/Dextrose 5% 2,000 ML IV SCH (09:30)
[2020-06-01] MEDS: Proctozone-HC 30 GM TUBE PR SCH ×2 (10:17→20:33)
[2020-06-01] MEDS: Aspirin 81 mg Enteric Coated Tablet PO SCH (20:27)
[2020-06-01] MEDS: Cyanocobalamin (Vitamin B-12) 1,000 MCG TAB PO SCH (20:27)
[2020-06-01] MEDS: Mirtazapine 15 MG TAB PO SCH (20:29)
[2020-06-01] MEDS: Melatonin 3 MG TAB PO PRN (20:40)
[2020-06-02] MEDS: Sodium Chloride 0.9% 1,000 ML IV SCH ×3 (00:45→21:06)
[2020-06-02] MEDS: Amino Acids 4.25 %/Dextrose 5% 2,000 ML IV SCH (05:29)
[2020-06-02] MEDS: Levothyroxine Sodium 50 MCG TAB PO SCH (05:30)
[2020-06-02] MEDS: Vit A,C & E/Lutein/Minerals Tablet PO SCH ×2 (08:43→21:10)
[2020-06-02] MEDS: Linezolid 600 MG TAB PO SCH ×2 (08:44→21:09)
[2020-06-02] MEDS: Digoxin 0.25 MG TAB PO SCH (08:44)
[2020-06-02] MEDS: hydrALAZINE 25 MG TAB PO SCH ×3 (08:44→21:08)
[2020-06-02] MEDS: Apixaban 2.5 MG TAB PO SCH ×2 (08:44→21:07)
[2020-06-02] MEDS: Acetaminophen 500 MG TAB PO SCH ×3 (08:44→21:05)
[2020-06-02] MEDS: Saccharomyces boulardii 250 MG CAP PO SCH (08:44)
[2020-06-02] MEDS: Carvedilol 6.25 MG TAB PO SCH ×2 (08:44→21:07)
[2020-06-02] MEDS: Lisinopril 5 MG TAB PO SCH (08:45)
[2020-06-02] MEDS: Proctozone-HC 30 GM TUBE PR SCH ×2 (08:46→21:11)
[2020-06-02] MEDS: Emollient 15 oz bottle 450 ML, Triamcinolone Acetonide 200 MG TOP SCH ×2 (08:46→21:11)
[2020-06-02] MEDS ORDERED: Amino Acids 4.25 %/Dextrose 5% 2,000 ML IV SCH ×2 (15:00→15:15)
[2020-06-02] MEDS ORDERED: Amino Acids 4.25 %/Dextrose 5% 1,000 ML IV SCH (15:15)
[2020-06-02] MEDS ORDERED: Zinc Oxide 20% Oint 30 GM TUBE TOP PRN (15:22)
[2020-06-02] MEDS ORDERED: Zinc Sulfate 220 MG CAP PO PRN (15:25)
[2020-06-02] MEDS: D5W-AA 4.25% with LYTES 1,000 ML IV SCH (18:06)
[2020-06-02 18:09] LABS: ALT (SGPT) 14 U/L (8-55); AST (SGOT) 20 U/L (5-34); Albumin 3.1 g/dL (3.4-4.8); Alkaline Phosphatase 259 U/L (40-110); Anion Gap 13 mmol/L (10-20); BUN (Urea Nitrogen) 36 mg/dL (8.4-25.7); Bilirubin, Total 0.2 mg/dL (0.2-1.2); Calc. Creatinine Clearance 79 mL/min (70-130); Calcium 8.1 mg/dL (7.8-10.44); Carbon Dioxide 30 mmol/L (23-31); Chloride 101 mmol/L (98-107); Globulin 1.8 g/dL (2.4-3.5); Glucose 123 mg/dL (83-110); Magnesium 2.1 mg/dL (1.6-2.6); Protein, Total 4.9 g/dL (5.8-8.1); Sodium 140 mmol/L (136-145)
[2020-06-02] MEDS: Aspirin 81 mg Enteric Coated Tablet PO SCH (21:07)
[2020-06-02] MEDS: Cyanocobalamin (Vitamin B-12) 1,000 MCG TAB PO SCH (21:08)
[2020-06-02] MEDS: Mirtazapine 15 MG TAB PO SCH (21:09)
[2020-06-03] MEDS: D5W-AA 4.25% with LYTES 1,000 ML IV SCH ×3 (03:46→23:12)
[2020-06-03] MEDS: Levothyroxine Sodium 50 MCG TAB PO SCH (06:21)
[2020-06-03] MEDS: Sodium Chloride 0.9% 1,000 ML IV SCH ×2 (06:22→16:47)
[2020-06-03] MEDS: Acetaminophen 500 MG TAB PO SCH ×3 (08:29→20:20)
[2020-06-03] MEDS: Linezolid 600 MG TAB PO SCH ×2 (08:30→20:28)
[2020-06-03] MEDS: Apixaban 2.5 MG TAB PO SCH ×2 (08:30→20:20)
[2020-06-03] MEDS: Saccharomyces boulardii 250 MG CAP PO SCH (08:30)
[2020-06-03] MEDS: Lisinopril 5 MG TAB PO SCH (08:30)
[2020-06-03] MEDS: Vit A,C & E/Lutein/Minerals Tablet PO SCH ×2 (08:30→20:29)
[2020-06-03] MEDS: Digoxin 0.25 MG TAB PO SCH (08:31)
[2020-06-03] MEDS: hydrALAZINE 25 MG TAB PO SCH ×3 (08:31→20:21)
[2020-06-03] MEDS: Proctozone-HC 30 GM TUBE PR SCH ×2 (08:31→20:29)
[2020-06-03] MEDS: Carvedilol 6.25 MG TAB PO SCH ×2 (08:31→20:21)
[2020-06-03] MEDS: Emollient 15 oz bottle 450 ML, Triamcinolone Acetonide 200 MG TOP SCH ×2 (08:32→20:29)
[2020-06-03] MEDS: Aspirin 81 mg Enteric Coated Tablet PO SCH (20:21)
[2020-06-03] MEDS: Cyanocobalamin (Vitamin B-12) 1,000 MCG TAB PO SCH (20:21)
[2020-06-03] MEDS: Mirtazapine 15 MG TAB PO SCH (20:28)
[2020-06-04] MEDS: Sodium Chloride 0.9% 1,000 ML IV SCH ×3 (02:45→21:57)
[2020-06-04] MEDS: Levothyroxine Sodium 50 MCG TAB PO SCH (05:33)
[2020-06-04 06:16] LABS: ALT (SGPT) 17 U/L (8-55); AST (SGOT) 20 U/L (5-34); Alkaline Phosphatase 240 U/L (40-110); Anion Gap 12 mmol/L (10-20); BUN (Urea Nitrogen) 28 mg/dL (8.4-25.7); Bilirubin, Total 0.2 mg/dL (0.2-1.2); Calc. Creatinine Clearance 83 mL/min (70-130); Calcium 8.1 mg/dL (7.8-10.44); Carbon Dioxide 29 mmol/L (23-31); Chloride 103 mmol/L (98-107); Globulin 1.8 g/dL (2.4-3.5); Glucose 125 mg/dL (83-110); Magnesium 2.3 mg/dL (1.6-2.6); Potassium 4.2 mmol/L (3.5-5.1); Protein, Total 4.8 g/dL (5.8-8.1); Sodium 140 mmol/L (136-145)
[2020-06-04] MEDS: D5W-AA 4.25% with LYTES 1,000 ML IV SCH ×2 (08:52→19:37)
[2020-06-04] MEDS: Vit A,C & E/Lutein/Minerals Tablet PO SCH ×2 (08:54→20:44)
[2020-06-04] MEDS: Saccharomyces boulardii 250 MG CAP PO SCH (08:54)
[2020-06-04] MEDS: Proctozone-HC 30 GM TUBE PR SCH ×2 (08:54→20:43)
[2020-06-04] MEDS: Digoxin 0.25 MG TAB PO SCH (08:55)
[2020-06-04] MEDS: Acetaminophen 500 MG TAB PO SCH ×3 (08:55→20:41)
[2020-06-04] MEDS: Linezolid 600 MG TAB PO SCH ×2 (08:55→20:44)
[2020-06-04] MEDS: Carvedilol 6.25 MG TAB PO SCH ×2 (08:55→20:45)
[2020-06-04] MEDS: Lisinopril 5 MG TAB PO SCH (08:55)
[2020-06-04] MEDS: hydrALAZINE 25 MG TAB PO SCH ×3 (08:56→20:46)
[2020-06-04] MEDS: Apixaban 2.5 MG TAB PO SCH ×2 (08:56→20:42)
[2020-06-04] MEDS: Emollient 15 oz bottle 450 ML, Triamcinolone Acetonide 200 MG TOP SCH ×2 (08:57→20:43)
[2020-06-04] MEDS: Mirtazapine 15 MG TAB PO SCH (20:45)
[2020-06-04] MEDS: Aspirin Chewable 81 MG TAB PO SCH (20:45)
[2020-06-04] MEDS: Cyanocobalamin (Vitamin B-12) 1,000 MCG TAB PO SCH (20:45)
[2020-06-04] MEDS: Melatonin 3 MG TAB PO PRN (20:45)
[2020-06-05] MEDS: Levothyroxine Sodium 50 MCG TAB PO SCH (05:01)
[2020-06-05] MEDS: D5W-AA 4.25% with LYTES 1,000 ML IV SCH ×2 (05:09→17:41)
[2020-06-05] MEDS: Acetaminophen 500 MG TAB PO SCH ×3 (08:30→21:38)
[2020-06-05] MEDS: Linezolid 600 MG TAB PO SCH ×2 (08:31→21:43)
[2020-06-05] MEDS: Digoxin 0.25 MG TAB PO SCH (08:31)
[2020-06-05] MEDS: Vit A,C & E/Lutein/Minerals Tablet PO SCH ×2 (08:31→21:37)
[2020-06-05] MEDS: Saccharomyces boulardii 250 MG CAP PO SCH (08:32)
[2020-06-05] MEDS: Lisinopril 5 MG TAB PO SCH (08:32)
[2020-06-05] MEDS: Apixaban 2.5 MG TAB PO SCH ×2 (08:32→21:36)
[2020-06-05] MEDS: Carvedilol 6.25 MG TAB PO SCH ×2 (08:32→21:41)
[2020-06-05] MEDS: hydrALAZINE 25 MG TAB PO SCH ×3 (08:33→21:40)
[2020-06-05] MEDS: Proctozone-HC 30 GM TUBE PR SCH ×2 (08:35→21:03)
[2020-06-05] MEDS: Sodium Chloride 0.9% 1,000 ML IV SCH ×2 (10:50→17:41)
[2020-06-05] MEDS: Emollient 15 oz bottle 450 ML, Triamcinolone Acetonide 200 MG TOP SCH ×2 (14:50→21:51)
[2020-06-05] MEDS: Aspirin Chewable 81 MG TAB PO SCH (21:37)
[2020-06-05] MEDS: Mirtazapine 15 MG TAB PO SCH (21:39)
[2020-06-05] MEDS: Cyanocobalamin (Vitamin B-12) 1,000 MCG TAB PO SCH (21:41)
[2020-06-06] MEDS: D5W-AA 4.25% with LYTES 1,000 ML IV SCH ×2 (05:32→15:42)
[2020-06-06] MEDS: Levothyroxine Sodium 50 MCG TAB PO SCH (05:33)
[2020-06-06 06:24] LABS: Hemoglobin 9.6 g/dL (14.0-18.0); Platelet Count 424 thou/uL (130-400)
[2020-06-06 06:25] LABS: Calc. Creatinine Clearance 82 mL/min (70-130)
[2020-06-06] MEDS: Sodium Chloride 0.9% 1,000 ML IV SCH ×2 (07:06→15:26)
[2020-06-06] MEDS: Apixaban 2.5 MG TAB PO SCH ×2 (09:38→21:13)
[2020-06-06] MEDS: Lisinopril 5 MG TAB PO SCH (09:38)
[2020-06-06] MEDS: Saccharomyces boulardii 250 MG CAP PO SCH (09:38)
[2020-06-06] MEDS: Carvedilol 6.25 MG TAB PO SCH ×2 (09:38→21:13)
[2020-06-06] MEDS: Vit A,C & E/Lutein/Minerals Tablet PO SCH ×2 (09:38→21:12)
[2020-06-06] MEDS: Digoxin 0.25 MG TAB PO SCH (09:40)
[2020-06-06] MEDS: Acetaminophen 500 MG TAB PO SCH ×3 (09:40→21:21)
[2020-06-06] MEDS: hydrALAZINE 25 MG TAB PO SCH ×3 (09:40→21:23)
[2020-06-06] MEDS: Proctozone-HC 30 GM TUBE PR SCH ×2 (09:42→21:22)
[2020-06-06] MEDS: Emollient 15 oz bottle 450 ML, Triamcinolone Acetonide 200 MG TOP SCH ×2 (09:43→21:24)
[2020-06-06] MEDS: Cyanocobalamin (Vitamin B-12) 1,000 MCG TAB PO SCH (21:11)
[2020-06-06] MEDS: Aspirin Chewable 81 MG TAB PO SCH (21:11)
[2020-06-06] MEDS: Mirtazapine 15 MG TAB PO SCH (21:13)
[2020-06-07] MEDS: Sodium Chloride 0.9% 1,000 ML IV SCH ×3 (01:30→20:49)
[2020-06-07] MEDS: D5W-AA 4.25% with LYTES 1,000 ML IV SCH ×3 (01:43→22:55)
[2020-06-07] MEDS: Levothyroxine Sodium 50 MCG TAB PO SCH (05:58)
[2020-06-07] MEDS: Acetaminophen 500 MG TAB PO SCH ×3 (09:29→20:38)
[2020-06-07] MEDS: Apixaban 2.5 MG TAB PO SCH ×2 (09:30→20:41)
[2020-06-07] MEDS: Saccharomyces boulardii 250 MG CAP PO SCH (09:30)
[2020-06-07] MEDS: Vit A,C & E/Lutein/Minerals Tablet PO SCH ×2 (09:30→20:42)
[2020-06-07] MEDS: Digoxin 0.25 MG TAB PO SCH (09:30)
[2020-06-07] MEDS: Carvedilol 6.25 MG TAB PO SCH ×2 (09:31→20:40)
[2020-06-07] MEDS: hydrALAZINE 25 MG TAB PO SCH ×3 (09:31→20:41)
[2020-06-07] MEDS: Lisinopril 5 MG TAB PO SCH (09:31)
[2020-06-07] MEDS: Proctozone-HC 30 GM TUBE PR SCH ×2 (09:32→20:47)
[2020-06-07] MEDS: Emollient 15 oz bottle 450 ML, Triamcinolone Acetonide 200 MG TOP SCH ×2 (09:33→20:49)
[2020-06-07] MEDS: Cyanocobalamin (Vitamin B-12) 1,000 MCG TAB PO SCH (20:39)
[2020-06-07] MEDS: Mirtazapine 15 MG TAB PO SCH (20:40)
[2020-06-07] MEDS: Aspirin Chewable 81 MG TAB PO SCH (20:42)
[2020-06-08] MEDS: Levothyroxine Sodium 50 MCG TAB PO SCH (05:25)
[2020-06-08] MEDS: Sodium Chloride 0.9% 1,000 ML IV SCH (06:14)
[2020-06-08] MEDS: Acetaminophen 500 MG TAB PO SCH ×3 (11:16→21:17)
[2020-06-08] MEDS: Carvedilol 6.25 MG TAB PO SCH ×2 (11:18→21:19)
[2020-06-08] MEDS: Apixaban 2.5 MG TAB PO SCH ×2 (11:18→21:17)
[2020-06-08] MEDS: Digoxin 0.25 MG TAB PO SCH (11:18)
[2020-06-08] MEDS: Lisinopril 5 MG TAB PO SCH (11:19)
[2020-06-08] MEDS: Emollient 15 oz bottle 450 ML, Triamcinolone Acetonide 200 MG TOP SCH ×2 (11:19→21:21)
[2020-06-08] MEDS: Vit A,C & E/Lutein/Minerals Tablet PO SCH ×2 (11:19→21:17)
[2020-06-08] MEDS: Saccharomyces boulardii 250 MG CAP PO SCH (11:19)
[2020-06-08] MEDS: Proctozone-HC 30 GM TUBE PR SCH ×2 (11:19→21:20)
[2020-06-08] MEDS: hydrALAZINE 25 MG TAB PO SCH ×3 (11:19→21:19)
[2020-06-08] MEDS: Aspirin Chewable 81 MG TAB PO SCH (21:18)
[2020-06-08] MEDS: Mirtazapine 15 MG TAB PO SCH (21:18)
[2020-06-08] MEDS: Cyanocobalamin (Vitamin B-12) 1,000 MCG TAB PO SCH (21:19)
[2020-06-09] MEDS: Levothyroxine Sodium 50 MCG TAB PO SCH (05:40)
[2020-06-09 05:41] LABS: Anion Gap 14 mmol/L (10-20); BUN (Urea Nitrogen) 32 mg/dL (8.4-25.7); Calc. Creatinine Clearance 73 mL/min (70-130); Calcium 8.5 mg/dL (7.8-10.44); Carbon Dioxide 28 mmol/L (23-31); Chloride 103 mmol/L (98-107); Glucose 100 mg/dL (83-110); Potassium 5.2 mmol/L (3.5-5.1); Sodium 140 mmol/L (136-145)
[2020-06-09] MEDS: Acetaminophen 500 MG TAB PO SCH ×3 (09:33→20:52)
[2020-06-09] MEDS: hydrALAZINE 25 MG TAB PO SCH ×3 (09:34→20:54)
[2020-06-09] MEDS: Apixaban 2.5 MG TAB PO SCH ×2 (09:34→20:53)
[2020-06-09] MEDS: Carvedilol 6.25 MG TAB PO SCH ×2 (09:34→20:54)
[2020-06-09] MEDS: Digoxin 0.25 MG TAB PO SCH (09:36)
[2020-06-09] MEDS: Vit A,C & E/Lutein/Minerals Tablet PO SCH ×2 (09:36→20:54)
[2020-06-09] MEDS: Saccharomyces boulardii 250 MG CAP PO SCH (09:36)
[2020-06-09] MEDS: Lisinopril 5 MG TAB PO SCH (09:36)
[2020-06-09] MEDS: Emollient 15 oz bottle 450 ML, Triamcinolone Acetonide 200 MG TOP SCH ×2 (09:37→20:57)
[2020-06-09] MEDS: Proctozone-HC 30 GM TUBE PR SCH ×2 (09:37→20:55)
[2020-06-09] MEDS: Aspirin Chewable 81 MG TAB PO SCH (20:53)
[2020-06-09] MEDS: Cyanocobalamin (Vitamin B-12) 1,000 MCG TAB PO SCH (20:54)
[2020-06-09] MEDS: Mirtazapine 15 MG TAB PO SCH (20:55)
[2020-06-10 05:31] LABS: Anion Gap 18 mmol/L (10-20); BUN (Urea Nitrogen) 36 mg/dL (8.4-25.7); Calc. Creatinine Clearance 80 mL/min (70-130); Calcium 8.6 mg/dL (7.8-10.44); Carbon Dioxide 26 mmol/L (23-31); Chloride 101 mmol/L (98-107); Glucose 103 mg/dL (83-110); Potassium 4.9 mmol/L (3.5-5.1); Sodium 140 mmol/L (136-145)
[2020-06-10] MEDS: Levothyroxine Sodium 50 MCG TAB PO SCH (05:41)
[2020-06-10] MEDS: Acetaminophen 500 MG TAB PO SCH ×3 (09:37→20:28)
[2020-06-10] MEDS: Vit A,C & E/Lutein/Minerals Tablet PO SCH ×2 (09:37→20:22)
[2020-06-10] MEDS: Lisinopril 5 MG TAB PO SCH (09:38)
[2020-06-10] MEDS: Apixaban 2.5 MG TAB PO SCH ×2 (09:38→20:21)
[2020-06-10] MEDS: hydrALAZINE 25 MG TAB PO SCH ×3 (09:39→20:26)
[2020-06-10] MEDS: Saccharomyces boulardii 250 MG CAP PO SCH (09:39)
[2020-06-10] MEDS: Carvedilol 6.25 MG TAB PO SCH ×2 (09:39→20:25)
[2020-06-10] MEDS: Digoxin 0.25 MG TAB PO SCH (09:39)
[2020-06-10] MEDS: Proctozone-HC 30 GM TUBE PR SCH ×2 (09:40→21:16)
[2020-06-10] MEDS: Emollient 15 oz bottle 450 ML, Triamcinolone Acetonide 200 MG TOP SCH ×2 (09:40→20:34)
[2020-06-10] MEDS: Aspirin Chewable 81 MG TAB PO SCH (20:21)
[2020-06-10] MEDS: Cyanocobalamin (Vitamin B-12) 1,000 MCG TAB PO SCH (20:23)
[2020-06-10] MEDS: Mirtazapine 15 MG TAB PO SCH (20:25)
[2020-06-11] MEDS: Levothyroxine Sodium 50 MCG TAB PO SCH (05:44)
[2020-06-11 06:35] LABS: Calc. Creatinine Clearance 78 mL/min (70-130)
[2020-06-11] MEDS: Vit A,C & E/Lutein/Minerals Tablet PO SCH ×2 (08:19→20:21)
[2020-06-11] MEDS: Apixaban 2.5 MG TAB PO SCH ×2 (08:19→20:34)
[2020-06-11] MEDS: Digoxin 0.25 MG TAB PO SCH (08:19)
[2020-06-11] MEDS: Saccharomyces boulardii 250 MG CAP PO SCH (08:20)
[2020-06-11] MEDS: hydrALAZINE 25 MG TAB PO SCH ×3 (08:20→20:36)
[2020-06-11] MEDS: Carvedilol 6.25 MG TAB PO SCH ×2 (08:20→20:23)
[2020-06-11] MEDS: Lisinopril 5 MG TAB PO SCH (08:20)
[2020-06-11] MEDS: Emollient 15 oz bottle 450 ML, Triamcinolone Acetonide 200 MG TOP SCH ×2 (08:21→20:41)
[2020-06-11] MEDS: Proctozone-HC 30 GM TUBE PR SCH ×2 (08:21→20:27)
[2020-06-11] MEDS: Acetaminophen 500 MG TAB PO SCH ×3 (08:21→20:24)
[2020-06-11] MEDS ORDERED: Linezolid 600 MG TAB PO SCH (13:30)
[2020-06-11] MEDS: Aspirin Chewable 81 MG TAB PO SCH (20:21)
[2020-06-11] MEDS: Cyanocobalamin (Vitamin B-12) 1,000 MCG TAB PO SCH (20:26)
[2020-06-11] MEDS: Linezolid 600 MG TAB PO SCH (20:39)
[2020-06-12] MEDS: Levothyroxine Sodium 50 MCG TAB PO SCH (05:44)
[2020-06-12] MEDS: Vit A,C & E/Lutein/Minerals Tablet PO SCH ×2 (08:19→20:51)
[2020-06-12] MEDS: hydrALAZINE 25 MG TAB PO SCH ×2 (08:19→09:00)
[2020-06-12] MEDS: Linezolid 600 MG TAB PO SCH ×2 (08:19→20:52)
[2020-06-12] MEDS: Carvedilol 6.25 MG TAB PO SCH (08:20)
[2020-06-12] MEDS: Acetaminophen 500 MG TAB PO SCH ×3 (08:20→20:54)
[2020-06-12] MEDS: Apixaban 2.5 MG TAB PO SCH ×2 (08:20→20:51)
[2020-06-12] MEDS: Digoxin 0.25 MG TAB PO SCH (08:21)
[2020-06-12] MEDS: Proctozone-HC 30 GM TUBE PR SCH ×2 (08:21→20:52)
[2020-06-12] MEDS: Saccharomyces boulardii 250 MG CAP PO SCH (08:22)
[2020-06-12] MEDS: Lisinopril 5 MG TAB PO SCH (08:22)
[2020-06-12] MEDS: Emollient 15 oz bottle 450 ML, Triamcinolone Acetonide 200 MG TOP SCH ×2 (08:23→20:56)
[2020-06-12] MEDS ORDERED: Carvedilol 3.125 MG TAB PO SCH (17:00)
[2020-06-12] MEDS: Aspirin Chewable 81 MG TAB PO SCH (20:51)
[2020-06-12] MEDS: Cyanocobalamin (Vitamin B-12) 1,000 MCG TAB PO SCH (20:51)
[2020-06-12] MEDS: Carvedilol 3.125 MG TAB PO SCH (20:51)
[2020-06-13] MEDS: Levothyroxine Sodium 50 MCG TAB PO SCH (05:02)
[2020-06-13 06:13] LABS: ALT (SGPT) 35 U/L (8-55); AST (SGOT) 23 U/L (5-34); Albumin 3.3 g/dL (3.4-4.8); Alkaline Phosphatase 426 U/L (40-110); Anion Gap 14 mmol/L (10-20); BUN (Urea Nitrogen) 28 mg/dL (8.4-25.7); Bilirubin, Total 0.2 mg/dL (0.2-1.2); Calc. Creatinine Clearance 70 mL/min (70-130); Calcium 8.7 mg/dL (7.8-10.44); Carbon Dioxide 30 mmol/L (23-31); Chloride 102 mmol/L (98-107); Glucose 111 mg/dL (83-110); Potassium 4.9 mmol/L (3.5-5.1); Protein, Total 5.3 g/dL (5.8-8.1); Sodium 141 mmol/L (136-145); Uric Acid 4.4 mg/dL (3.5-7.2)
[2020-06-13 06:35] LABS: #Basophils 0.1 thou/uL (0.0-0.2); #Eosinphils 0.3 thou/uL (0.0-0.7); #Lymphocytes 4.1 thou/uL (1.20-3.40); #Neutrophils 4.9 thou/uL (1.40-6.50); %Basophils 1.2 % (0.0-1.0); %Eosinophils 2.5 % (0.0-10.0); %Lymphocytes 39.3 % (21.0-51.0); %Monocytes 9.8 % (0.0-10.0); %Neutrophils 47.1 % (42.0-75.0); Hemoglobin 9.6 g/dL (14.0-18.0); Mean Corpuscular HGB CONC 29.7 g/dL (32.0-36.0); Mean Corpuscular Hemoglobin 25.1 pg (27.0-31.0); Mean Corpuscular Volume 84.5 fL (78.0-98.0); Mean Platelet Volume 11.5 fL (7.4-10.4); Platelet Count 433 thou/uL (130-400); RBC Distribution Width 20.5 % (11.5-14.5); Red Blood Cell (RBC) Count 3.82 mill/uL (4.70-6.10); White Blood Cell (WBC) Count 10.3 thou/uL (4.8-10.8)
[2020-06-13 07:32] LABS: Anisocytosis SLIGHT = 6-15 cells (100X) (0-5/hpf); Poikilocytosis SLIGHT = 6-15 cells (100X) (0-5/hpf)
[2020-06-13 07:34] LABS: Platelet Morphology Comment Appears Adequate
--- NOTE | 2020-06-13 07:37 | PRG ---
DATE OF SERVICE: 06/12/2020 SUBJECTIVE: The patient was seen and examined at the bedside. No adverse events overnight. The patient reportedly is progressing well with physical therapy and occupational therapy. OBJECTIVE: VITALS SIGNS: Temperature 97.5, pulse 67, respirations 18, oxygen 99% on room air, blood pressure 117/53. GENERAL: The patient is somnolent, but arousable. Answers appropriately to questions. HEENT: Normocephalic, atraumatic. Extraocular muscles intact, cachectic with temporal wasting. CARDIOVASCULAR: Regular rate and rhythm. No murmurs, rubs, or gallops. LUNGS: Clear to auscultation bilaterally. ABDOMEN: Soft, nontender to palpation. No distention. EXTREMITIES: Normal bulk and tone. NEUROLOGIC: Cranial nerves 2-12 appear to be intact grossly. PSYCHIATRIC: Appropriate mood and affect. ASSESSMENT AND PLAN: 1. Physical deconditioning. 2. Chronic lymphocytic leukemia. 3. Infected lipoma with vancomycin-resistant Enterococcus isolated from drainage. 4. Azotemia. 5. Malnutrition. 6. Continue physical therapy and occupational therapy. 7. Continue antibiotic treatment with Zyvox. 8. Regarding azotemia possibly secondary to tumor lysis syndrome versus dehydration. We will check CBC, calcium, phosphorus, renal function in the morning. May consider IV fluid hydration gently. 9. We have encouraged p.o. intake with fluids. However, patient does not like the thickened liquids. Repeat speech evaluation is pending. 10. Hypotension. PLAN: 1. Regarding hypotension, we will hold hydralazine. 2. We will decrease carvedilol to 3.125 mg and continue lisinopril at 2.5 mg. Continue to monitor. 3. May consider IV fluid hydration, if blood pressure does not improve. 4. Regarding CLL, we will arrange for outpatient followup at the time of discharge, however, if the patient does show signs of tumor lysis syndrome, may consider possible admission to a higher level of care for treatment and monitoring. 5. Regarding patient's chronic medical problems, home medications have been resumed. Of note, we have held mirtazapine that was initiated for decreased appetite due to concern for serotonin syndrome in conjunction with Zyvox. 6. Regarding placement, the patient's is wanting potential placement with [facility] with jail and physical therapy and occupational therapy. We will arrange for this at the time of discharge as well. Job ID: [id number]
[2020-06-13] MEDS: Lisinopril 5 MG TAB PO SCH (09:13)
[2020-06-13] MEDS: Apixaban 2.5 MG TAB PO SCH ×2 (09:13→20:26)
[2020-06-13] MEDS: Vit A,C & E/Lutein/Minerals Tablet PO SCH ×2 (09:13→20:25)
[2020-06-13] MEDS: Carvedilol 3.125 MG TAB PO SCH ×2 (09:14→20:27)
[2020-06-13] MEDS: Digoxin 0.25 MG TAB PO SCH (09:14)
[2020-06-13] MEDS: Saccharomyces boulardii 250 MG CAP PO SCH (09:14)
[2020-06-13] MEDS: Acetaminophen 500 MG TAB PO SCH ×3 (09:15→20:25)
[2020-06-13] MEDS: Linezolid 600 MG TAB PO SCH ×2 (09:15→20:26)
[2020-06-13] MEDS: Emollient 15 oz bottle 450 ML, Triamcinolone Acetonide 200 MG TOP SCH ×2 (09:16→20:27)
[2020-06-13] MEDS: Proctozone-HC 30 GM TUBE PR SCH ×2 (09:19→20:28)
[2020-06-13] MEDS: Cyanocobalamin (Vitamin B-12) 1,000 MCG TAB PO SCH (20:25)
[2020-06-13] MEDS: Aspirin Chewable 81 MG TAB PO SCH (20:25)
[2020-06-13] MEDS: Melatonin 3 MG TAB PO PRN (20:30)
[2020-06-14] MEDS: Levothyroxine Sodium 50 MCG TAB PO SCH (05:23)
[2020-06-14] MEDS: Acetaminophen 500 MG TAB PO SCH ×3 (09:11→21:53)
[2020-06-14] MEDS: Lisinopril 5 MG TAB PO SCH (09:12)
[2020-06-14] MEDS: Saccharomyces boulardii 250 MG CAP PO SCH (09:12)
[2020-06-14] MEDS: Carvedilol 3.125 MG TAB PO SCH ×2 (09:12→21:52)
[2020-06-14] MEDS: Apixaban 2.5 MG TAB PO SCH ×2 (09:12→21:52)
[2020-06-14] MEDS: Digoxin 0.25 MG TAB PO SCH (09:13)
[2020-06-14] MEDS: Emollient 15 oz bottle 450 ML, Triamcinolone Acetonide 200 MG TOP SCH ×2 (09:13→21:58)
[2020-06-14] MEDS: Proctozone-HC 30 GM TUBE PR SCH ×2 (09:13→21:59)
[2020-06-14] MEDS: Linezolid 600 MG TAB PO SCH ×2 (09:13→21:52)
[2020-06-14] MEDS: Vit A,C & E/Lutein/Minerals Tablet PO SCH ×2 (09:15→21:54)
[2020-06-14] MEDS: Aspirin Chewable 81 MG TAB PO SCH (21:52)
[2020-06-14] MEDS: Cyanocobalamin (Vitamin B-12) 1,000 MCG TAB PO SCH (21:52)
[2020-06-15] MEDS: Levothyroxine Sodium 50 MCG TAB PO SCH (06:18)
[2020-06-15] MEDS: Acetaminophen 500 MG TAB PO SCH ×3 (09:21→20:45)
[2020-06-15] MEDS: Vit A,C & E/Lutein/Minerals Tablet PO SCH ×2 (09:22→20:47)
[2020-06-15] MEDS: Digoxin 0.25 MG TAB PO SCH (09:22)
[2020-06-15] MEDS: Carvedilol 3.125 MG TAB PO SCH ×2 (09:23→20:46)
[2020-06-15] MEDS: Lisinopril 5 MG TAB PO SCH (09:23)
[2020-06-15] MEDS: Linezolid 600 MG TAB PO SCH ×2 (09:23→20:47)
[2020-06-15] MEDS: Proctozone-HC 30 GM TUBE PR SCH ×2 (09:24→20:53)
[2020-06-15] MEDS: Saccharomyces boulardii 250 MG CAP PO SCH (09:24)
[2020-06-15] MEDS: Apixaban 2.5 MG TAB PO SCH ×2 (09:24→20:46)
[2020-06-15] MEDS: Emollient 15 oz bottle 450 ML, Triamcinolone Acetonide 200 MG TOP SCH ×2 (09:24→20:51)
[2020-06-15] MEDS: Cyanocobalamin (Vitamin B-12) 1,000 MCG TAB PO SCH (20:46)
[2020-06-15] MEDS: Aspirin Chewable 81 MG TAB PO SCH (20:46)
[2020-06-15] MEDS: Melatonin 3 MG TAB PO PRN (20:47)
[2020-06-16] MEDS: Levothyroxine Sodium 50 MCG TAB PO SCH (05:51)
[2020-06-16] MEDS: Vit A,C & E/Lutein/Minerals Tablet PO SCH ×2 (08:50→20:49)
[2020-06-16] MEDS: Lisinopril 5 MG TAB PO SCH (08:51)
[2020-06-16] MEDS: Digoxin 0.25 MG TAB PO SCH (08:52)
[2020-06-16] MEDS: Linezolid 600 MG TAB PO SCH ×2 (08:53→20:51)
[2020-06-16] MEDS: Acetaminophen 500 MG TAB PO SCH ×3 (08:54→20:48)
[2020-06-16] MEDS: Saccharomyces boulardii 250 MG CAP PO SCH (08:55)
[2020-06-16] MEDS: Apixaban 2.5 MG TAB PO SCH ×2 (08:55→20:49)
[2020-06-16] MEDS: Carvedilol 3.125 MG TAB PO SCH ×2 (08:55→20:49)
[2020-06-16] MEDS: Proctozone-HC 30 GM TUBE PR SCH ×2 (08:56→21:46)
[2020-06-16] MEDS: Emollient 15 oz bottle 450 ML, Triamcinolone Acetonide 200 MG TOP SCH ×2 (08:56→21:47)
[2020-06-16 11:05] LABS: #Basophils 0.1 thou/uL (0.0-0.2); #Eosinphils 0.2 thou/uL (0.0-0.7); #Lymphocytes 3.2 thou/uL (1.20-3.40); #Monocytes 0.6 thou/uL (0.11-0.59); #Neutrophils 6.1 thou/uL (1.40-6.50); %Basophils 1.2 % (0.0-1.0); %Eosinophils 1.7 % (0.0-10.0); %Lymphocytes 31.4 % (21.0-51.0); %Monocytes 5.5 % (0.0-10.0); %Neutrophils 60.2 % (42.0-75.0); Anisocytosis MODERATE=16-30 cells (100X) (0-5/hpf); Hemoglobin 9.7 g/dL (14.0-18.0); Hypochromia SLIGHT = 6-15 cells (100X) (0-5/hpf); MDiff Complete? YES; Mean Corpuscular HGB CONC 30.2 g/dL (32.0-36.0); Mean Corpuscular Hemoglobin 25.7 pg (27.0-31.0); Mean Corpuscular Volume 85.2 fL (78.0-98.0); Mean Platelet Volume 9.4 fL (7.4-10.4); Platelet Count 480 thou/uL (130-400); Polychromasia SLIGHT = 2-3 cells (100X) (0-2/hpf); RBC Distribution Width 20.7 % (11.5-14.5); Red Blood Cell (RBC) Count 3.77 mill/uL (4.70-6.10); White Blood Cell (WBC) Count 10.1 thou/uL (4.8-10.8)
[2020-06-16 11:26] LABS: Bilirubin Negative (Negative); Blood, Urine Large (Negative); Glucose, Urine (Dipstick) Negative (Negative); Ketone, Urine Negative (Negative); Leukocyte Large (Negative); Nitrite Positive (Negative); Protein, Urine (Dipstick) 100 mg/dL (Neg-Trace); Specific Gravity, Urine 1.025 (1.005-1.030); Urobilinogen 0.2 mg/dL (Less than 2)
[2020-06-16 11:27] LABS: Clarity Cloudy (Clear)
[2020-06-16 11:32] LABS: RBC/HPF Greater than 50 HPF (0-3); Squamous Epithelial 0-3 HPF (0-3); WBC/HPF Greater Than 50 HPF (0-3)
[2020-06-16 11:33] LABS: Bacteria/HPF 2+ HPF (None Seen); Urine Culture Reflex Yes Yes
[2020-06-16] MEDS: Aspirin Chewable 81 MG TAB PO SCH (20:48)
[2020-06-16] MEDS: Cyanocobalamin (Vitamin B-12) 1,000 MCG TAB PO SCH (20:50)
[2020-06-17] MEDS: Levothyroxine Sodium 50 MCG TAB PO SCH (06:01)
[2020-06-17] MEDS: Lisinopril 5 MG TAB PO SCH (09:26)
[2020-06-17] MEDS: Vit A,C & E/Lutein/Minerals Tablet PO SCH ×2 (09:26→21:38)
[2020-06-17] MEDS: Linezolid 600 MG TAB PO SCH ×2 (09:26→21:37)
[2020-06-17] MEDS: Saccharomyces boulardii 250 MG CAP PO SCH (09:27)
[2020-06-17] MEDS: Digoxin 0.25 MG TAB PO SCH (09:27)
[2020-06-17] MEDS: Apixaban 2.5 MG TAB PO SCH ×2 (09:27→21:35)
[2020-06-17] MEDS: Carvedilol 3.125 MG TAB PO SCH ×2 (09:27→21:38)
[2020-06-17] MEDS: Acetaminophen 500 MG TAB PO SCH ×3 (09:28→21:34)
[2020-06-17] MEDS: Emollient 15 oz bottle 450 ML, Triamcinolone Acetonide 200 MG TOP SCH ×2 (09:29→21:53)
[2020-06-17] MEDS: Proctozone-HC 30 GM TUBE PR SCH ×2 (09:29→21:53)
[2020-06-17] MEDS: Aspirin Chewable 81 MG TAB PO SCH (21:37)
[2020-06-17] MEDS: Cyanocobalamin (Vitamin B-12) 1,000 MCG TAB PO SCH (21:38)
[2020-06-18] MEDS: Levothyroxine Sodium 50 MCG TAB PO SCH (05:50)
[2020-06-18 06:38] LABS: Calc. Creatinine Clearance 79 mL/min (70-130)
[2020-06-18] MEDS: Vit A,C & E/Lutein/Minerals Tablet PO SCH ×2 (08:28→20:53)
[2020-06-18] MEDS: Carvedilol 3.125 MG TAB PO SCH ×2 (08:29→20:53)
[2020-06-18] MEDS: Apixaban 2.5 MG TAB PO SCH ×2 (08:29→20:52)
[2020-06-18] MEDS: Acetaminophen 500 MG TAB PO SCH ×3 (08:29→20:52)
[2020-06-18] MEDS: Lisinopril 5 MG TAB PO SCH (08:29)
[2020-06-18] MEDS: Digoxin 0.25 MG TAB PO SCH (08:30)
[2020-06-18] MEDS: Emollient 15 oz bottle 450 ML, Triamcinolone Acetonide 200 MG TOP SCH ×2 (08:30→20:56)
[2020-06-18] MEDS: Proctozone-HC 30 GM TUBE PR SCH ×3 (08:30→20:55)
[2020-06-18] MEDS: Saccharomyces boulardii 250 MG CAP PO SCH (08:30)
[2020-06-18 12:30] VITALS: BMI 19.3
[2020-06-18] MEDS: Aspirin Chewable 81 MG TAB PO SCH (20:53)
[2020-06-18] MEDS: Mirtazapine 15 MG TAB PO SCH (20:53)
[2020-06-18] MEDS: Cyanocobalamin (Vitamin B-12) 1,000 MCG TAB PO SCH (20:55)
[2020-06-19] MEDS: Levothyroxine Sodium 50 MCG TAB PO SCH (06:48)
[2020-06-19] MEDS: Apixaban 2.5 MG TAB PO SCH ×2 (08:56→20:16)
[2020-06-19] MEDS: Vit A,C & E/Lutein/Minerals Tablet PO SCH ×2 (08:56→20:16)
[2020-06-19] MEDS: Saccharomyces boulardii 250 MG CAP PO SCH (08:56)
[2020-06-19] MEDS: Digoxin 0.25 MG TAB PO SCH (08:56)
[2020-06-19] MEDS: Lisinopril 5 MG TAB PO SCH (08:57)
[2020-06-19] MEDS: Acetaminophen 500 MG TAB PO SCH ×3 (08:57→20:17)
[2020-06-19] MEDS: Carvedilol 3.125 MG TAB PO SCH ×2 (08:57→20:16)
[2020-06-19] MEDS: Emollient 15 oz bottle 450 ML, Triamcinolone Acetonide 200 MG TOP SCH ×2 (08:58→20:17)
[2020-06-19] MEDS: Ciprofloxacin 500 MG TAB PO SCH (20:16)
[2020-06-19] MEDS: Cyanocobalamin (Vitamin B-12) 1,000 MCG TAB PO SCH (20:17)
[2020-06-19] MEDS: Mirtazapine 15 MG TAB PO SCH (20:19)
[2020-06-19] MEDS: Proctozone-HC 30 GM TUBE PR SCH (20:20)
[2020-06-19] MEDS: Aspirin Chewable 81 MG TAB PO SCH (20:20)
[2020-06-20] MEDS: Levothyroxine Sodium 50 MCG TAB PO SCH (05:15)
[2020-06-20] MEDS: Ciprofloxacin 500 MG TAB PO SCH ×2 (05:15→20:14)
[2020-06-20 06:49] LABS: Hemoglobin 9.6 g/dL (14.0-18.0); Platelet Count 413 thou/uL (130-400)
[2020-06-20] MEDS: Vit A,C & E/Lutein/Minerals Tablet PO SCH ×2 (08:19→20:15)
[2020-06-20] MEDS: Apixaban 2.5 MG TAB PO SCH ×2 (08:20→20:14)
[2020-06-20] MEDS: Carvedilol 3.125 MG TAB PO SCH ×2 (08:20→20:14)
[2020-06-20] MEDS: Lisinopril 5 MG TAB PO SCH (08:20)
[2020-06-20] MEDS: Saccharomyces boulardii 250 MG CAP PO SCH (08:20)
[2020-06-20] MEDS: Acetaminophen 500 MG TAB PO SCH ×3 (08:21→20:13)
[2020-06-20] MEDS: Digoxin 0.25 MG TAB PO SCH (08:22)
[2020-06-20] MEDS: Emollient 15 oz bottle 450 ML, Triamcinolone Acetonide 200 MG TOP SCH ×2 (08:25→20:17)
[2020-06-20] MEDS: Proctozone-HC 30 GM TUBE PR SCH ×2 (10:24→20:16)
[2020-06-20] MEDS: Ibuprofen 600 MG TAB PO PRN (10:57)
[2020-06-20] MEDS: Cyanocobalamin (Vitamin B-12) 1,000 MCG TAB PO SCH (20:13)
[2020-06-20] MEDS: Mirtazapine 15 MG TAB PO SCH (20:13)
[2020-06-20] MEDS: Aspirin Chewable 81 MG TAB PO SCH (20:17)
[2020-06-21] MEDS: Ciprofloxacin 500 MG TAB PO SCH ×2 (05:20→20:21)
[2020-06-21] MEDS: Levothyroxine Sodium 50 MCG TAB PO SCH (05:20)
[2020-06-21] MEDS: Acetaminophen 500 MG TAB PO SCH ×3 (08:50→20:22)
[2020-06-21] MEDS: Vit A,C & E/Lutein/Minerals Tablet PO SCH ×2 (08:50→20:21)
[2020-06-21] MEDS: Digoxin 0.25 MG TAB PO SCH (08:50)
[2020-06-21] MEDS: Saccharomyces boulardii 250 MG CAP PO SCH (08:50)
[2020-06-21] MEDS: Apixaban 2.5 MG TAB PO SCH ×2 (08:51→20:21)
[2020-06-21] MEDS: Lisinopril 5 MG TAB PO SCH (08:51)
[2020-06-21] MEDS: Carvedilol 3.125 MG TAB PO SCH ×2 (09:00→20:21)
[2020-06-21] MEDS: Emollient 15 oz bottle 450 ML, Triamcinolone Acetonide 200 MG TOP SCH ×2 (09:30→20:20)
[2020-06-21] MEDS: Proctozone-HC 30 GM TUBE PR SCH ×2 (09:30→20:21)
[2020-06-21] MEDS: Ibuprofen 600 MG TAB PO PRN (17:34)
[2020-06-21] MEDS: Aspirin Chewable 81 MG TAB PO SCH (20:21)
[2020-06-21] MEDS: Mirtazapine 15 MG TAB PO SCH (20:22)
[2020-06-21] MEDS: Cyanocobalamin (Vitamin B-12) 1,000 MCG TAB PO SCH (20:22)
[2020-06-22] MEDS: Levothyroxine Sodium 50 MCG TAB PO SCH (05:15)
[2020-06-22] MEDS: Ciprofloxacin 500 MG TAB PO SCH (05:15)
[2020-06-22] MEDS: Carvedilol 3.125 MG TAB PO SCH (08:05)
[2020-06-22] MEDS: Digoxin 0.25 MG TAB PO SCH (08:05)
[2020-06-22] MEDS: Acetaminophen 500 MG TAB PO SCH ×2 (08:05→13:21)
[2020-06-22] MEDS: Apixaban 2.5 MG TAB PO SCH (08:05)
[2020-06-22] MEDS: Vit A,C & E/Lutein/Minerals Tablet PO SCH (08:06)
[2020-06-22] MEDS: Saccharomyces boulardii 250 MG CAP PO SCH (08:06)
[2020-06-22] MEDS: Emollient 15 oz bottle 450 ML, Triamcinolone Acetonide 200 MG TOP SCH (08:06)
[2020-06-22] MEDS: Lisinopril 5 MG TAB PO SCH (08:06)
[2020-06-22] MEDS: Proctozone-HC 30 GM TUBE PR SCH (08:06)
[2020-06-22 08:14] VITALS: BP 115/62; TEMP 97.2
--- NOTE | 2020-06-23 06:03 | DIS ---
DATE OF ADMISSION: 05/18/2020 DATE OF DISCHARGE: 06/22/2020 ADMITTING ATTENDING: Josie Howell MD. DISCHARGE ATTENDING: Dr. Brennan MD PRIMARY DIAGNOSES: 1. Physical deconditioning, poor oral intake, malnutrition. 2. Unstageable sacral decubitus ulcer. 3. Infected lipoma growing vancomycin-resistant Enterococcus. SECONDARY DIAGNOSES: 1. Chronic lymphocytic leukemia. 2. Atrial fibrillation. 3. Congestive heart failure. 4. History of splenic rupture, status post splenectomy. 5. Urinary tract infection. 6. Hypothyroidism. 7. Hypertension. DISCHARGE MEDICATIONS: 1. Aspirin 81 mg p.o. daily. 2. Ciprofloxacin 500 mg p.o. b.i.d., dispensed 5 tablets. 3. Carvedilol 3.125 mg p.o. b.i.d. 4. Eliquis 2.5 mg p.o. b.i.d. 5. Florastor 250 mg p.o. daily. 6. Digoxin 0.25 mg p.o. daily. 7. Melatonin 3 mg p.o. at bedtime p.r.n. 8. Remeron 7.5 mg p.o. at bedtime. 9. Acetaminophen 500 mg p.o. q.6 hours p.r.n. 10. Cyanocobalamin 1000 mcg p.o. q.p.m. 11. Lisinopril 2.5 mg p.o. daily. 12. 50 mcg p.o. daily. 13. Multivitamin daily. DISCONTINUED MEDICATIONS: 1. Hydralazine 25 mg p.o. t.i.d. 2. Lisinopril 10 mg p.o. b.i.d. 3. Digoxin 0.125 mg p.o. daily. 4. 50 mcg p.o. daily. 5. Carvedilol 6.25 mg p.o. b.i.d. 6. Furosemide 40 mg p.o. daily. 7. Eliquis 5 mg p.o. b.i.d. HOSPITAL COURSE: The patient is an 84-year-old male with the above past medical history, who was admitted for Nursing Home and Rehabilitation. Please see the patient's history and physical from [facility] for further details regarding patient's admission details. The patient did progress very well with physical therapy. His course, however, was complicated by draining lipoma on his back that grew vancomycin-resistant Enterococcus. He completed a course of treatment with linezolid. The patient's course was also complicated by poor appetite. He was started on mirtazapine to help with his appetite. He also required PPN for a period of one week; however, at the time of discharge, patient was eating and drinking very well and noted significant improvement in his appetite. The patient was discharged in stable condition home with physical therapy and occupational therapy. Regarding his urinary retention, patient will need followup with his urologist. DISCHARGE INSTRUCTIONS: 1. Location: Home with physical therapy, occupational therapy. 2. Diet: Regular. 3. Activity: Ad kari. 4. Followup: Patient is to follow up with his primary care provider, Dr. Eloy Nichols, within 7 days. He will need to follow up with his urologist, Dr. Mcbride, within 7 days. He will need follow up with Cardiology and Oncology within the next 7 to 14 days. Job ID: [id number]
--- NOTE | 2020-06-26 19:11 | PQF ---
CLINICAL DOCUMENTATION CLARIFICATION FORM: Dear : Yolande Amin MD Date / Time: 06/26/2020 Please exercise your independent, professional judgment in responding to the clarification form. Clinical indicators are provided on the bottom of this form for your review Please check appropriate box(es): [ ] Protein Calorie Malnutrition: [ ] Mild [ ] Moderate [ ] Severe [ ] Other Malnutrition (please specify) [ ] Cachexia [ ] Other diagnosis (Please specify if any) [ ] Unable to determine In addition, please specify: Present on Admission (POA): [ ] Yes [ ] No [ ] Unable to determine Physician Signature: Date/Time: For continuity of documentation, please document condition throughout progress notes and discharge summary. Thank You. To be completed by CDI/Coding staff for physician review: Present Clinical Indicators - Signs / Symptoms / Labs Results and Location in Medical Record [x] Cachexia,malnutrition Progress note on 06/12 [x] BMI of 19.3 locker operator on 06/18 Two or More of the Following ASPEN Criteria: [x ] Poor oral intake Discharge summary on 06/23 [x ] 20% Weight Loss in 3months locker operator on 06/18 [x ] Temporal muscle wasting locker operator on 06/18 [ ] Loss of Subcutaneous Fat [ ] Localized/Generalized Fluid Accumulation [ ] Diminished Handgrip Strength Present Risk Factors Results and Location in Medical Record [ ] Change in appetite / nausea / vomiting / diarrhea [ ] Inability to consume adequate caloric intake [x] Chronic illness leukemia Progress note on 06/12 [ ] Medication [ ] PEG tube [ ] Short gut syndrome Present Treatments Results and Location in Medical Record [ x ] Dietary consult locker operator on 06/18 [ ] Nutritional supplements [ ] TPN / tube feedings [ ] Assistance with feeding [ ] Appetite stimulant - medication CDS/Refractive Surgeon Signature: AAS Phone #: Date/Time: 06/26/2020 Moderate Malnutrition (in acute illness) ? Energy Intake: <75% of estimated energy requirement for > 7 days ? Weight Loss: 1-2%/1 week; 5%/ 1 month; 7.5%/3 months ? Other: mild body fat loss; mild muscle mass loss; mild fluid accumulation; Severe Malnutrition (in acute illness) ? Energy Intake: ? 50% of estimated energy requirement for ? 5 days ? Weight Loss: >2%/1 week; >5%/1 month; >7.5%/3 months ? Other: moderate body fat loss; moderate muscle mass loss; moderate- severe fluid accumulation; measurably reduced accounting advisory services manager strength Moderate Malnutrition (in chronic illness) ? Energy Intake: <75% of estimated energy requirement for ?1 month ? Weight Loss: 5%/1 month; 7.5%/3 months; 10%/6 months; 20%/1 year ? Other: mild body fat loss; mild muscle mass loss; mild fluid accumulation Severe Malnutrition (in chronic illness) ? Energy Intake: ?75% of estimated energy requirement for ?1 month ? Weight Loss: >5%/1 month; >7.5%/3 months; >10%/6 months; >20%/1 year ? Other: severe body fat loss; severe muscle mass loss; severe fluid accumulation; measurably reduced accounting advisory services manager strength This is a permanent part of the Medical Record [facility]
== END 2020-06-22 14:45 | disposition home or self-care (01) | DRG 948 ==
LOC: MADMS 16:08
PROVIDERS: ADMIT Family Medicine; ATTEND Family Medicine
DX: R53.81 Other malaise (principal); E46 Unspecified protein-calorie malnutrition; R64 Cachexia; C91.10 Chronic lymphocytic leukemia of B-cell type not having achieved remission; Z16.21 Resistance to vancomycin; I48.91 Unspecified atrial fibrillation; I11.0 Hypertensive heart disease with heart failure; D64.9 Anemia, unspecified; E03.9 Hypothyroidism, unspecified; Z96.652 Presence of left artificial knee joint; L89.150 Pressure ulcer of sacral region, unstageable; Z66 Do not resuscitate; I95.9 Hypotension, unspecified; B95.2 Enterococcus as the cause of diseases classified elsewhere; I50.9 Heart failure, unspecified; F03.90 Unspecified dementia, unspecified severity, without behavioral disturbance, psychotic disturbance, mood disturbance, and anxiety; Z90.81 Acquired absence of spleen; Z88.0 Allergy status to penicillin; Z88.1 Allergy status to other antibiotic agents; Z79.01 Long term (current) use of anticoagulants; Z79.890 Hormone replacement therapy; Z79.899 Other long term (current) drug therapy; Z88.2 Allergy status to sulfonamides; Z74.01 Bed confinement status
CPT/HCPCS: 36415; 80048; 80053; 80162; 81001; 82565; 83735; 84100; 84443; 84550; 85007; 85014; 85018; 85025; 85027; 85048; 85049; 87040; 87070; 87077; 87086; 87186; 87205; J3301; J7050

== ENCOUNTER 2020-07-20 04:45 | Emergency (ER) | payer MEDICARE ==
[2020-07-20] MEDS ORDERED: Boostrix 0.5 ML (Tdap) VIAL ONE (05:10)
[2020-07-20] MEDS ORDERED: Morphine 2 MG/ML VIAL ONE (06:44)
--- NOTE | 2020-07-20 08:25 | CT ---
PRELIMINARY REPORT/[facility]/EMERGENCY AFTER HOURS PROCEDURE: EXAM: CT Chest Without Intravenous Contrast. CLINICAL HISTORY: TRAUMA CHEST WITH SPINE REFORMATS FALL; RIGHT SIDE RIBS HIT CORNER OF NIGHTSTAND TECHNIQUE: Axial computed tomography images of the chest without intravenous contrast. COMPARISON: CT\SR - CT AORTIC DISSECTION PROTOCOL - 05/04/2020 04:09 AM RAMP JOCKEY FINDINGS: LUNGS: There is mild scarring within the anterior aspect of the left upper lobe. There is minimal bibasilar atelectasis or scarring. PLEURAL SPACES: No pleural effusion. No pneumothorax. HEART AND MEDIASTINUM: There is calcified coronary atherosclerosis. The heart is enlarged. Moderately extensive atherosclerosis noted involving the thoracic aorta, without aneurysmal dilatatio n. Mild ectasia of the upper abdominal aorta noted. LYMPH NODES: No lymphadenopathy. CHEST WALL AND UPPER ABDOMEN: Suggestion of a small stone within the gallbladder. Prior splenectomy. BONES: No acute osseous findings. No evidence of rib fractures. MISCELLANEOUS: Moderate thoracolumbar degenerative changes are seen with multilevel disc height loss and anterior os teophytes. IMPRESSION: 1. No CT evidence of acute cardiopulmonary process. 2. Calcified aortic and coronary atherosclerosis. Mild ectasia of the upper abdominal aorta. 3. Mild scarring within the left upper lobe. Mild bibasilar atelectasis or scarring. 4. Suggestion of cholelithiasis. ELECTRONICALLY SIGNED BY: Kina Horvath MD Jul 20, 2020 6:20:47 AM RAMP JOCKEY This report is intended for review by the ordering physician only, in accordance of law. If you recei ve this report in error, please call [facility] at [phone]. FINAL REPORT CHEST CT WITHOUT CONTRAST: HISTORY: Chest wall injury. COMPARISON: None. FINDINGS: Limited evaluation of the mediastinum by the absence of IV contrast. No mass, lymphadenopathy, or hem atoma. There is cardiomegaly without significant pericardial fluid. There are coronary artery calcifi cations. There is calcification of the mitral annulus. There is atherosclerosis of a nonaneurysmal aorta. Trachea and central bronchi are patent. Dependent atelectatic changes, without masses or consolidatio n. Scarring or atelectasis in the anterior left upper lobe. No abnormality with regards to the subdiaphragmatic structures. There is evidence of cholelithiasis. No evidence of fracture in the visualized bony thorax, including the thoracic vertebra. IMPRESSION: 1. This report is in agreement with the initial report by [facility]. 2. No evidence of post-traumatic change in the chest. POS: [facility]
== END 2020-07-20 06:55 | disposition home or self-care (01) ==
LOC: MADERS 04:45
DX: S41.111A Laceration without foreign body of right upper arm, initial encounter (principal); S51.011A Laceration without foreign body of right elbow, initial encounter; S21.212A Laceration without foreign body of left back wall of thorax without penetration into thoracic cavity, initial encounter; S51.012A Laceration without foreign body of left elbow, initial encounter; S20.211A Contusion of right front wall of thorax, initial encounter; E03.9 Hypothyroidism, unspecified; I48.91 Unspecified atrial fibrillation; Z23 Encounter for immunization; Z87.891 Personal history of nicotine dependence; Z79.01 Long term (current) use of anticoagulants; Z79.899 Other long term (current) drug therapy; W01.198A Fall on same level from slipping, tripping and stumbling with subsequent striking against other object, initial encounter
CPT/HCPCS: 71250; 90471; 90715; 96374; J2270

== ENCOUNTER 2020-09-18 12:51 | Emergency (ER) | payer MEDICARE ==
[2020-09-18] MEDS ORDERED: Sodium Chloride 0.9% 1,000 ML ONE (13:37)
[2020-09-18] MEDS ORDERED: diphenhydrAMINE 50 MG/ML VIAL ONE (13:37)
[2020-09-18 13:54] LABS: ALT (SGPT) 23 U/L (8-55); AST (SGOT) 19 U/L (5-34); Albumin 3.8 g/dL (3.4-4.8); Alkaline Phosphatase 133 U/L (40-110); Anion Gap 13 mmol/L (10-20); BUN (Urea Nitrogen) 27 mg/dL (8.4-25.7); Bilirubin, Total 0.4 mg/dL (0.2-1.2); Calc. Creatinine Clearance 0 mL/min (70-130); Calcium 8.8 mg/dL (7.8-10.44); Carbon Dioxide 30 mmol/L (23-31); Chloride 101 mmol/L (98-107); Globulin 1.5 g/dL (2.4-3.5); Glucose 99 mg/dL (83-110); Potassium 4.4 mmol/L (3.5-5.1); Protein, Total 5.3 g/dL (5.8-8.1); Sodium 140 mmol/L (136-145)
[2020-09-18 13:59] LABS: Hemoglobin 12.3 g/dL (14.0-18.0); Mean Corpuscular HGB CONC 29.4 g/dL (32.0-36.0); Mean Corpuscular Hemoglobin 25.6 pg (27.0-31.0); Mean Corpuscular Volume 87.3 fL (78.0-98.0); Mean Platelet Volume 11.6 fL (7.4-10.4); PTT 28.2 sec (22.9-36.1); Platelet Count 268 thou/uL (130-400); Prothrombin Time 13.1 sec (12.0-14.7); RBC Distribution Width 17.3 % (11.5-14.5); Red Blood Cell (RBC) Count 4.79 mill/uL (4.70-6.10); White Blood Cell (WBC) Count 10.8 thou/uL (4.8-10.8)
[2020-09-18 14:05] LABS: Manual Diff?? YES
[2020-09-18 14:06] LABS: Band 2 % (5-11); Lymphocytes 39 % (21-51); MDiff Complete? YES; Neutrophil 50 % (42-75)
[2020-09-18 14:07] LABS: Anisocytosis SLIGHT = 6-15 cells (100X) (0-5/hpf); Monocytes 9 % (0-10); Platelet Morphology Comment Appears Adequate; Poikilocytosis SLIGHT = 6-15 cells (100X) (0-5/hpf)
[2020-09-18 14:40] LABS: Bilirubin Negative (Negative); Blood, Urine Trace (Negative); Clarity Clear (Clear); Glucose, Urine (Dipstick) Negative (Negative); Ketone, Urine Negative (Negative); Leukocyte Small (Negative); Nitrite Positive (Negative); Protein, Urine (Dipstick) Negative (Neg-Trace); Urobilinogen 0.2 mg/dL (Less than 2)
[2020-09-18 14:41] LABS: RBC/HPF 0-3 HPF (0-3)
[2020-09-18 14:42] LABS: Bacteria/HPF 2+ HPF (None Seen); Squamous Epithelial 0-3 HPF (0-3); WBC/HPF 21-50 HPF (0-3)
[2020-09-18] MEDS ORDERED: Nitrofurantoin Monohyd/M-Cryst 100 MG CAP ONE (15:17)
[2020-09-18 16:53] LABS: SARS-CoV-2 NAA Rapid Test Not Detected (NotDetected)
[2020-09-18] MEDS ORDERED: Morphine 2 MG/ML VIAL ONE (19:07)
== END 2020-09-18 19:28 | disposition short-term general hospital (02) ==
LOC: MADERS 12:51
DX: N39.0 Urinary tract infection, site not specified (principal); E03.9 Hypothyroidism, unspecified; I48.91 Unspecified atrial fibrillation; Z87.891 Personal history of nicotine dependence; Z79.01 Long term (current) use of anticoagulants; Z79.899 Other long term (current) drug therapy
CPT/HCPCS: 0240U; 83605; 85610; 85730; 87040; 87077; 87086; 87186; 96374; 96375; 99284; J2270; 36415; 80053; 81003; 81015; 84443; 85025; J1200; J7050